=== PATIENT | female | born 1955 | race Caucasian/White ===

== ENCOUNTER → 2016-10-30 | Outpatient (CLI) | payer BC ==
--- NOTE | 2016-11-03 09:35 | MM ---
Reason for exam: screening (asymptomatic). Last mammogram was performed 1 year and 1 month ago. History: Patient is postmenopausal. Family history of breast cancer in aunt at age 50 and breast cancer in mother at age 86. Benign US RT VAD breast biopsy of the right breast, September 12, 2013. Benign excisional biopsy of the left breast, 1981. Physical Findings: A clinical breast exam by your physician is recommended on an annual basis and results should be correlated with mammographic findings. MG Screening Mammo w CAD Bilateral CC and MLO view(s) were taken. Prior study comparison: October 08, 2015, bilateral MG screening mammo w CAD. August 22, 2014, bilateral MG screening mammo w CAD. The breast tissue is almost entirely fat. Previous mammotome biopsy within the right breast. Asymmetric breast tissue in the right breast. No significant changes when compared with prior studies. ASSESSMENT: Benign, BI-RAD 2 RECOMMENDATION: Routine screening mammogram of both breasts in 1 year.
== END ==
LOC: RADMAMWWP 14:55
PROVIDERS: ATTEND Family Medicine
DX: Z12.31 Encounter for screening mammogram for malignant neoplasm of breast (principal)

== ENCOUNTER → 2017-05-07 | Outpatient (CLI) | payer BC ==
--- NOTE | 2017-05-07 16:11 | PN ---
PROGRESS NOTE DATE OF SERVICE: 05/07/2017 62-year-old lady has been followed in [facility] for treatment of obstructive sleep apnea-hypopnea syndrome. The patient successfully continued to use her CPAP equipment every night but recently she has been told by her that she sometimes has snoring while she is using her CPAP unit. About 1-1/2 years ago because patient has difficulties with the usage of the machine I decreased the CPAP pressure from 11 cm of water to 9 cm of water. Also, patient indicated that sometimes when she pushes the button to start the machine, the machine does not start and she has to push the button several times. [place] Sleepiness Scale today is 2. I checked patient's CPAP unit. CPAP pressure is 9 cm of water. She is using it 24/30 nights for more than 4 hours, average 5.1 hours per night. She indicated that she practically did not have any episodes of cardiac arrhythmia for the last year, except last night with some extrasystoles. She lost her weight since previous visit from 232 pounds down to 228 pounds. MEDICATIONS: Include Cozaar, Toprol, Feldene. PHYSICAL EXAM: Patient in no distress. BP 112/69, HR 78, RR 16, height 5 feet and 3, weight 228, BMI 40, temp 98.1, oxygen saturation room air 96%. Oropharynx low position of soft palate. Neck Supple, no JVD. Thyroid is not palpable. LUNGS Clear to percussion and to auscultation. Good air exchange. No wheezing or rhonchi. HEART S1, S2 regular. No murmurs, gallops, or rubs. ABDOMEN : Obese. Soft and nontender. Bowel sounds are present. No organomegaly appreciated. EXTREMITIES No clubbing or cyanosis. MULE DEVELOPER Awake, alert, and oriented X3. Cranial nerves 2 to 7 intact. There is no fasciculation or atrophy. noted. No focal deficits observed. IMPRESSION: 1. Obstructive sleep apnea-hypopnea syndrome. Patient demonstrated good compliance with treatment benefitting from treatment. 2. Patient's CPAP unit sometimes does not start at night. 3. Sometimes with a pressure of 9 cm of water, the patient has episodes of snoring. 4. Hypothyroidism. 5. Irritable bowel syndrome. 6. Status post cholecystectomy. 7. History of episodes of cardiac arrhythmia, extrasystoles, improved with treatment on CPAP. 8. Status post hysterectomy. PLAN: 1. Prescription to check the patient's CPAP unit if necessary to replace with new one. 2. I increased pressure in CPAP unit to 10 cm of water. 3. Losing weight. 4. Sleep hygiene with regular time in bed for at least 8 hours. 5. No driving if feels any sleepiness. Thank you very much for allowing me to participate in management of your patient. Sincerely, Cb Christie MD, PhD, FAASM Diplomat of [employer] Ski Production Supervisor of [facility] [place] MMODL / IJN: [id number] /
== END | disposition home or self-care (01) ==
LOC: SLEEP 14:49
PROVIDERS: ATTEND Internal Medicine
DX: G47.33 Obstructive sleep apnea (adult) (pediatric) (principal); E03.9 Hypothyroidism, unspecified; K58.9 Irritable bowel syndrome, unspecified; Z90.49 Acquired absence of other specified parts of digestive tract; Z86.79 Personal history of other diseases of the circulatory system; Z90.710 Acquired absence of both cervix and uterus; Z79.1 Long term (current) use of non-steroidal anti-inflammatories (NSAID)

== ENCOUNTER → 2018-01-05 | Outpatient (CLI) | payer BC ==
--- NOTE | 2018-01-07 12:05 | MM ---
Reason for exam: screening (asymptomatic). Last mammogram was performed 1 year and 2 months ago. History: Patient is postmenopausal. Family history of breast cancer in aunt at age 50 and breast cancer in mother at age 86. Benign US RT VAD breast biopsy of the right breast, September 12, 2013. Benign excisional biopsy of the left breast, 1981. Physical Findings: A clinical breast exam by your physician is recommended on an annual basis and results should be correlated with mammographic findings. MG 3D Screening Mammo W/Cad Bilateral CC and MLO view(s) were taken. Prior study comparison: October 30, 2016, bilateral MG screening mammo w CAD. October 08, 2015, bilateral MG screening mammo w CAD. The breast tissue is almost entirely fat. Previous mammotome biopsy in the right breast. There is chronic nodularity bilaterally. No significant changes when compared with prior studies. ASSESSMENT: Benign, BI-RAD 2 RECOMMENDATION: Routine screening mammogram of both breasts in 1 year.
== END | disposition home or self-care (01) ==
LOC: RADMAMWWP 07:17
PROVIDERS: ATTEND Nurse Practitioner Family
DX: Z12.31 Encounter for screening mammogram for malignant neoplasm of breast (principal)
CPT/HCPCS: 77063; 77067

== ENCOUNTER → 2018-03-18 | Outpatient (CLI) | payer BC ==
--- NOTE | 2018-03-18 16:55 | PN ---
PROGRESS NOTE DATE OF SERVICE: 03/18/2018 This patient is a 63-year-old lady who has been followed in the sleep center for treatment of obstructive sleep apnea-hypopnea syndrome. The patient successfully continues to use her CPAP equipment every night. Recently she developed some problem related to her machine; sometimes the main knob of the machine does not work. I checked her machine. Usage is 26/30 nights for more than 4 hours, average 5.4 hours. No snoring with the machine. [place] Sleepiness Scale today is only 1. MEDICATIONS: 1. Synthroid. 2. Ativan. 3. Feldene. PHYSICAL EXAMINATION: GENERAL A pleasant patient without distress. VITAL SIGNS: BP 123/76, HR 72, RR 16, height 5 feet 3-1/2 inches, weight 229, BMI 39.9. Temperature 98.2. Oxygen saturation at room air 96%. HEENT: PERRLA, EOMI. Evaluation of oropharynx showed tongue protrudes midline; low position of soft palate. NECK: Supple. No JVD. Thyroid is not palpable. LUNGS: Clear to percussion and to auscultation. Good air exchange. No wheezing or rhonchi. HEART: S1, S2 regular. Mild systolic murmur on aorta. ABDOMEN: Obese. EXTREMITIES : No clubbing or cyanosis. SALES ORDER PROCESSOR: Awake, alert, and oriented X3. Cranial nerves 2 to 7 intact. There is no fasciculation or atrophy. noted. No focal deficits observed. IMPRESSION: 1. Obstructive sleep apnea-hypopnea syndrome. Patient demonstrated great compliance with treatment, benefitting from treatment. 2. Obesity. 3. Hypothyroidism. 4. Palpitation. 5. Osteoarthritis. 6. Status post hysterectomy. 7. Status post lap band surgery. 8. History of irritable bowel syndrome. PLAN: 1. Prescription for all necessary CPAP supplies. 2. Losing weight. 3. Sleep hygiene with regular time in bed for at least 8 hours. 4. Patient will replace her CPAP unit. 5. No driving if feeling any sleepiness. Thank you very much for allowing me to participate in the management of your patient. Sincerely, Cb Christie MD, PhD, FAASM Diplomat of [employer] Letter Of Credit Document Examiner of [facility] [place] MMODL / IJN: [id number] /
== END | disposition home or self-care (01) ==
LOC: SLEEP 14:36
PROVIDERS: ATTEND Internal Medicine
DX: G47.33 Obstructive sleep apnea (adult) (pediatric) (principal); E66.9 Obesity, unspecified; E03.9 Hypothyroidism, unspecified; R00.2 Palpitations; M19.90 Unspecified osteoarthritis, unspecified site; Z90.710 Acquired absence of both cervix and uterus; Z98.84 Bariatric surgery status; Z87.19 Personal history of other diseases of the digestive system; Z79.1 Long term (current) use of non-steroidal anti-inflammatories (NSAID); Z68.39 Body mass index [BMI] 39.0-39.9, adult; Z99.89 Dependence on other enabling machines and devices; Z79.899 Other long term (current) drug therapy

== ENCOUNTER 2018-05-06 11:29 | Day surgery (SDC) | payer BC, MEDICARE ==
[2018-05-04 13:16] VITALS: BMI 38.6
[2018-05-06 12:04] VITALS: RESP 16; TEMP 97.4
[2018-05-06] MEDS ORDERED: LACTATED RINGERS 1,000 ML IV ONE (12:13)
[2018-05-06] MEDS ORDERED: LIDOCAINE 1% 20 ML VIAL (10MG/ML) FOR IV START INTRADERMA ONE (12:13)
[2018-05-06] MEDS ORDERED: PROPOFOL 10 MG/ML 20 ML VIAL IV ONE (12:41)
[2018-05-06] MEDS ORDERED: LIDOCAINE 1% INJ 10MG/ML (20 ML MDV) ONE (12:41)
--- NOTE | 2018-05-06 13:05 | P.PCN ---
Date of Procedure: 05/06/18 Procedure(s) Performed: Brief history: Patient is a pleasant 63-year-old white female, scheduled for an elective upper endoscopy as well as colonoscopy as a part of evaluation of GERD/intermittent dysphagia to solids and chronic diarrhea of several years duration. She has history of lab) 15 years ago that was removed but still continues to have intermittent dysphagia to solids. Procedure performed: Esophagogastroduodenoscopy with biopsy Colonoscopy with biopsy Preoperative diagnosis: GERD/dysphagia Chronic diarrhea and history of colon polyps Anesthesia: MAC Procedure: After informed consent was obtained from the patient was brought into the endoscopy unit and IV sedation was administered by anesthesia under continuous monitoring. Initially upper endoscopy was done. The Olympus GF 160 video endoscope was inserted inserted into the mouth and esophagus intubated without any difficulty and was gradually advanced into the stomach and duodenum and carefully examined. The bulb and second part of the duodenum appeared normal. Biopsies were done from the duodenum to rule out celiac disease. The scope was then withdrawn into the stomach adequately insufflated with air and upon careful examination the antrum and body, cardia and fundus appeared normal. The scope was then withdrawn into the esophagus. The GE junction was located at 36 cm to the incisors. Small to moderate size hiatal hernia with Jhonny erosions noted. The GE junction appeared regular with no erythema erosions or ulcerations. Rest of the esophagus appeared normal. Patient tolerated the procedure well. At this time the patient continued to remain sedation. Initial digital rectal examination was normal. Olympus CF 160 video colonoscope was then inserted into the rectum and gradually advanced to the cecum without any difficulty. Careful examination was performed as the scope was gradually being withdrawn. The prep was fair.. The cecum, ascending colon, transverse colon, descending colon, sigmoid colon and rectum appeared normal. Labs were done from ascending and descending colon to rule out microscopic/collagenous colitis. Retroflexion was performed in the rectum and no lesions were noted. Patient tolerated the procedure well. Impression: 1. Upper endoscopy revealed small to moderate size hiatal hernia with Jhonny erosions but no evidence of esophageal stricture.. 2. Colonoscopy revealed normal examination to evidence of colitis or colorectal neoplasia Recommendations: Findings of this examination were discussed with the patient as well as her family. She was advised to follow with the biopsy results. She'll have a repeat screening colonoscopy in 5 years. Because of the prior history of colon polyps.
[2018-05-06 13:14] VITALS: PULSE 54
[2018-05-06 13:27] VITALS: BP 112/71
== END 2018-05-06 13:44 | disposition home or self-care (01) ==
LOC: ORWHC2ENDO 11:29
PROVIDERS: ATTEND Internal Medicine Gastroenterology
DX: K44.9 Diaphragmatic hernia without obstruction or gangrene (principal); K58.9 Irritable bowel syndrome, unspecified; R13.10 Dysphagia, unspecified; Z86.010 Personal history of colon polyps; I10 Essential (primary) hypertension; E07.9 Disorder of thyroid, unspecified; G47.33 Obstructive sleep apnea (adult) (pediatric); Z79.890 Hormone replacement therapy; Z79.1 Long term (current) use of non-steroidal anti-inflammatories (NSAID); Z79.899 Other long term (current) drug therapy; Z88.5 Allergy status to narcotic agent; Z88.2 Allergy status to sulfonamides; Z88.8 Allergy status to other drugs, medicaments and biological substances
CPT/HCPCS: 88305; 45380; 43239; J2001; J2704; 45378

== ENCOUNTER → 2018-07-01 | Outpatient (CLI) | payer BC ==
--- NOTE | 2018-07-01 11:23 | PN ---
PROGRESS NOTE DATE OF SERVICE: 07/01/2018. A 63-year-old lady who has been followed in the Sleep Center for treatment of obstructive sleep apnea-hypopnea syndrome. Several months ago she received new CPAP unit. Patient continued to use his CPAP equipment every night. She developed significant dryness in the mouth. She talked to the [employer] equipment XDC and the setup of humidification was increased, but patient continued to have her dryness in the mouth, very significant. I checked CPAP unit. CPAP pressure is 11 cm of water. Usage is practically 100% of the night. Average usage for 3 months, 4.7 hours. Leak for the last month, 31 L/minute, for the 3 months, 29 L/minutes. Apnea-hypopnea index for 3 months in the range of 3.1, which is normal range. [place] Sleepiness Scale today is 1. MEDICATIONS: Synthroid, Ativan, Seldane. PHYSICAL EXAM: Patient in no distress. BP 116/75, HR 59, RR 16, weight 229.2, temperature 97.9, oxygen saturation at room air 96%. OROPHARYNX: Low position of soft palate. ABDOMEN: Obese. Neck Supple, no JVD. Thyroid is not palpable. LUNGS Clear to percussion and to auscultation. Good air exchange. No wheezing or rhonchi. HEART S1, S2 regular. No murmurs, gallops, or rubs. EXTREMITIES No clubbing or cyanosis. WINEMAKER Awake, alert, and oriented X3. Cranial nerves 2 to 7 intact. There is no fasciculation or atrophy. noted. No focal deficits observed. IMPRESSION: 1. Severe obstructive sleep apnea-hypopnea syndrome. Patient demonstrated good compliance with treatment, benefitting from treatment. 2. Patient developed dryness in the mouth with a new machine. 3. Obesity. 4. Hypothyroidism. 5. History of osteoarthritis. 6. Status post hysterectomy. 7. Status post lap band surgery. 8. History of irritable bowel syndrome. PLAN: 1. We will check machine including heated humidifier with [employer]. According to patient on the level of humidity at 8, which is maximal, amount of water humidifier slightly goes down after the night of usage. Machine which may indicate that the heater is not working perfectly. 2. Prescription for chin strap to prevent leak, possibly opening mouth and subsequently developing dryness in the mouth, although on the previous machine, patient did not have dry mouth. 3. Losing weight. 4. Sleep hygiene with regular time in bed for at least 8 hours. 5. Precautions related to driving. No driving if feeling sleepiness. Thank you very much for allowing me to participate in management of your patient. Sincerely, Cb Christie MD, PhD, FAASM Diplomat of [employer] of Internal Medicine Flux Mixer of [facility] [place] MMODL / IJN: [id number] /
== END | disposition home or self-care (01) ==
LOC: SLEEP 10:03
PROVIDERS: ATTEND Internal Medicine
DX: G47.33 Obstructive sleep apnea (adult) (pediatric) (principal); E66.9 Obesity, unspecified; E03.9 Hypothyroidism, unspecified; Z87.39 Personal history of other diseases of the musculoskeletal system and connective tissue; Z90.710 Acquired absence of both cervix and uterus; Z79.899 Other long term (current) drug therapy; Z99.89 Dependence on other enabling machines and devices; Z98.84 Bariatric surgery status; Z87.19 Personal history of other diseases of the digestive system

== ENCOUNTER 2018-11-23 08:24 | Day surgery (SDC) | payer BC ==
[2018-11-19 09:39] VITALS: BMI 37.5
[~2018-11-23 08:24] MED LIST: SODIUM CHLORIDE 0.9% 1,000 ML IV SCH
[2018-11-23 08:43] VITALS: TEMP 97.1
[2018-11-23] MEDS ORDERED: LIDOCAINE 1% INJ 10MG/ML (20 ML MDV) SQ ONE (09:59)
--- NOTE | 2018-11-23 10:36 | P.PCN ---
Preoperative Diagnosis: Loop monitor implant Primary physicians: Cindy Canales Diesel Service Apprentice: Dr. Ramos Indication: Palpitations, Sick Sinus Syndrome Patient was brought to the EP lab in a fasting state. Written informed consent was obtained prior to the procedure. The left pectoral area was prepped and draped per protocol. Intravenous antibiotic was administered preoperatively. A subcutaneous Loop monitor was implanted successfully and the wound was closed per protocol. The device was programmed to detect significant alem- arrhythmic and tachy-arrhythmic events, per protocol. Device and programming details: For atrial fibrillation and bradycardia detection Patient underwent EP procedure under conscious sedation/moderate sedation, monitoring of the level of consciousness and physiologic parameters including but not limited to vital signs and oxygenation. Patient tolerated the procedure well without any acute complications. Start time: 0958 Stop time: 1005 Disposition: same day
--- NOTE | 2018-11-23 10:44 | P.PRLE ---
RE: Maryanne Amato Dear Ryann Madden underwent implantation of loop monitor for tachybradycardia syndrome. I will keep you posted on any new developments or detection of any new arrhythmias Thank you for entrusting me with the care of the patient Warm regards Sincerely Rickey See
[2018-11-23 11:45] VITALS: RESP 16
[2018-11-23 11:55] VITALS: BP 105/59; PULSE 56
[2018-11-23] MEDS ORDERED: ceFAZolin IN SWFI 2 GM/20 ML SYRINGE IVP ONE (13:00)
== END 2018-11-23 11:29 | disposition home or self-care (01) ==
LOC: CATHEP 08:24
PROVIDERS: ATTEND Internal Medicine Clinical Cardiac Electrophysiology
DX: R00.2 Palpitations (principal); I49.5 Sick sinus syndrome; I10 Essential (primary) hypertension; G47.33 Obstructive sleep apnea (adult) (pediatric); Z99.89 Dependence on other enabling machines and devices; Z87.891 Personal history of nicotine dependence; Z79.1 Long term (current) use of non-steroidal anti-inflammatories (NSAID); Z79.82 Long term (current) use of aspirin; Z79.890 Hormone replacement therapy; Z79.899 Other long term (current) drug therapy; Z88.5 Allergy status to narcotic agent; Z88.2 Allergy status to sulfonamides; Z88.8 Allergy status to other drugs, medicaments and biological substances
CPT/HCPCS: 33285; C1769; C1764; J2001; J0690

== ENCOUNTER 2018-12-31 01:14 | Inpatient (IN) | payer BC, MEDICARE ==
--- NOTE | 2018-12-31 02:04 | ED ---
Abdominal Pain HPI - General Stated Complaint: Bowel Obstruction Time Seen by Provider: 12/31/18 01:33 Source: patient, family Mode of arrival: wheelchair Limitations: physical limitation - History of Present Illness Initial Comments: This patient is a 63-year-old woman who presents as a transfer from [facility]. She states she had gone there to be evaluated for abdominal pain. The pain started nearly 24 hours ago now. She describes it as being diffuse, aching, somewhat colicky, and moderate intensity. She has not noted worsening or relieving factors. In addition, patient states she has had over 10 watery bowel movements though this seems to have slowed for the past few hours. Patient went to the other hospital where she had labs and computed tomography scan performed and was told that she had probably developed a small bowel obstruction. She chose to come here by private vehicle with her . Patient states that she was given some IV analgesia and it did relieve the pain somewhat. Patient's past surgical history notable for remote surgery for ovarian cyst. She also has had cholecystectomy. She had one previous bowel obstruction but states that this feels different. The previous episode had resolved after NG tube placement. MD Complaint: abdominal pain Onset/Timin -: days(s) Location: diffuse Radiation: none Severity: moderate Quality: aching Consistency: constant Improves With: nothing Worsens With: nothing Associated Symptoms: diarrhea - Related Data Home Medications Medication Instructions Recorded Confirmed Levothyroxine Sodium [Synthroid] 125 mcg PO DAILY 05/04/18 12/31/18 Piroxicam 20 mg PO DAILY 05/04/18 12/31/18 Ergocalciferol [Vitamin D2] 50,000 unit PO TU 11/19/18 12/31/18 Losartan [Cozaar] 50 mg PO DAILY 11/19/18 12/31/18 Allergies Allergy/AdvReac Type Severity Reaction Status Date / Time Sulfa (Sulfonamide Allergy Rash/Hives Verified 12/31/18 01:36 Antibiotics) meperidine [From Demerol] AdvReac BP drops Verified 12/31/18 01:36 methylprednisolone AdvReac Rash/Hives Verified 12/31/18 01:36 [From Depo-Medrol] Review of Systems ROS Statement: Those systems with pertinent positive or pertinent negative responses have been documented in the HPI. ROS Other: All systems not noted in ROS Statement are negative. Constitutional: Denies: fever, chills Respiratory: Denies: cough, dyspnea Cardiovascular: Denies: chest pain, palpitations, orthopnea, edema Gastrointestinal: Reports: abdominal pain, diarrhea. Denies: nausea, vomiting, melena, hematochezia Genitourinary: Denies: dysuria, hematuria Musculoskeletal: Denies: back pain Skin: Denies: rash Neurological: Denies: headache, weakness, numbness Past Medical History Past Medical History: Osteoarthritis (OA), Sleep Apnea/CPAP/BIPAP, Thyroid Disorder Additional Past Medical History / Comment(s): See Dr See H&P, IBS, SMALL BOWEL OBSTRUCTION History of Any Multi-Drug Resistant Organisms: None Reported Past Surgical History: Cholecystectomy, Hysterectomy Additional Past Surgical History / Comment(s): Colonoscopy, Cataracts; Lap band and removal Past Anesthesia/Blood Transfusion Reactions: No Reported Reaction Past Psychological History: No Psychological Hx Reported Smoking Status: Former smoker Past Alcohol Use History: None Reported Past Drug Use History: None Reported - Past Family History Father Family Medical History: Pulmonary Embolus Mother Family Medical History: Cancer Additional Family Medical History / Comment(s): Breast CA Daughter(s) Family Medical History: Cancer Additional Family Medical History / Comment(s): Tongue CA General Exam Limitations: physical limitation General appearance: alert, in no apparent distress Head exam: Present: atraumatic, normocephalic Eye exam: Present: normal appearance. Absent: scleral icterus, conjunctival injection ENT exam: Present: normal oropharynx Neck exam: Present: normal inspection Respiratory exam: Present: normal lung sounds bilaterally. Absent: respiratory distress, wheezes, rales, rhonchi, stridor Cardiovascular Exam: Present: regular rate, normal rhythm, normal heart sounds. Absent: systolic murmur, diastolic murmur, rubs, gallop GI/Abdominal exam: Present: soft, tenderness (Mild periumbilical tenderness), hypoactive bowel sounds. Absent: distended, guarding, rebound, rigid, mass, pulsatile mass, hernia Extremities exam: Present: normal inspection, normal capillary refill. Absent: pedal edema, calf tenderness Back exam: Present: normal inspection. Absent: CVA tenderness (R), CVA tenderness (L) Neurological exam: Present: alert Skin exam: Present: warm, dry, intact, normal color. Absent: rash Course Vital Signs 06/14/19 01:31 Temperature 97.8 F Pulse Rate 61 Respiratory 18 Rate Blood Pressure 110/75 O2 Sat by Pulse 96 Oximetry Medical Decision Making - Lab Data Result diagrams: 12/31/18 02:16 12/31/18 02:16 Lab Results 12/31/18 12/31/18 Range/Units 02:16 02:16 WBC 6.7 (3.8-10.6) k/uL RBC 4.93 (3.80-5.40) m/uL Hgb 13.3 (11.4-16.0) gm/dL Hct 41.1 (34.0-46.0) % MCV 83.2 (80.0-100.0) fL MCH 27.0 (25.0-35.0) pg MCHC 32.4 (31.0-37.0) g/dL RDW 15.9 H (11.5-15.5) % Plt Count 234 (150-450) k/uL Neutrophils % (Manual) 59 % Band Neutrophils % 16 % Lymphocytes % (Manual) 19 % Monocytes % (Manual) 4 % Eosinophils % (Manual) 4 % Neutrophils # (Manual) 5.00 (1.3-7.7) k/uL Lymphocytes # (Manual) 1.27 (1.0-4.8) k/uL Monocytes # (Manual) 0.27 (0-1.0) k/uL Eosinophils # (Manual) 0.27 (0-0.7) k/uL Nucleated RBCs 0 (0-0) /100 WBC Manual Slide Review Performed Large Platelets Present Polychromasia Present Anisocytosis (manual) Present Sodium 137 (137-145) mmol/L Potassium 4.4 (3.5-5.1) mmol/L Chloride 110 H (98-107) mmol/L Carbon Dioxide 21 L (22-30) mmol/L Anion Gap 6 mmol/L BUN 13 (7-17) mg/dL Creatinine 0.55 (0.52-1.04) mg/dL Est GFR (CKD-EPI)AfAm >90 (>60 ml/min/1.73 sqM) Est GFR (CKD-EPI)NonAf >90 (>60 ml/min/1.73 sqM) Glucose 117 H (74-99) mg/dL Calcium 8.5 (8.4-10.2) mg/dL Total Bilirubin 0.7 (0.2-1.3) mg/dL AST 37 H (14-36) U/L ALT 38 (9-52) U/L Alkaline Phosphatase 105 (38-126) U/L Total Protein 6.3 (6.3-8.2) g/dL Albumin 3.5 (3.5-5.0) g/dL Amylase <30 L (30-110) U/L Lipase 29 (23-300) U/L Disposition Clinical Impression: Small bowel obstruction Disposition: ADMITTED IP TO THIS [facility] Condition: Fair Referrals: Jeevan Martinez MD [Primary Care Provider] - 1-2 days
[2018-12-31 03:19] LABS: HCT 41.1 % (34.0-46.0); HGB 13.3 gm/dL (11.4-16.0); MCHC 32.4 g/dL (31.0-37.0); MCV 83.2 fL (80.0-100.0); Mean Platelet Volume 7.4; Platelet Count 234 k/uL (150-450); RBC 4.93 m/uL (3.80-5.40); RDW 15.9 % (11.5-15.5); WBC 6.7 k/uL (3.8-10.6)
[2018-12-31 03:23] LABS: ALT 38 U/L (9-52); AST 37 U/L (14-36); African American GFR (CKD) >90 (>60 ml/min/1.73 sqM); Albumin 3.5 g/dL (3.5-5.0); Alkaline Phosphatase 105 U/L (38-126); Amylase <30 U/L (30-110); Anion Gap 6 mmol/L; Blood Urea Nitrogen 13 mg/dL (7-17); Calcium 8.5 mg/dL (8.4-10.2); Carbon Dioxide 21 mmol/L (22-30); Chloride 110 mmol/L (98-107); Glucose 117 mg/dL (74-99); Lipase 29 U/L (23-300); Potassium 4.4 mmol/L (3.5-5.1); Sodium 137 mmol/L (137-145); Total Bilirubin 0.7 mg/dL (0.2-1.3); Total Protein 6.3 g/dL (6.3-8.2)
[2018-12-31 03:53] LABS: Band Neutrophils % 16 %; Eosinophils # (M) 0.27 k/uL (0-0.7); Lymphocytes # (M) 1.27 k/uL (1.0-4.8); Monocytes # (M) 0.27 k/uL (0-1.0); Neutrophils % (M) 59 %; Nucleated Red Blood Cells 0 /100 WBC (0-0); Total Cells Counted 200
[2018-12-31 03:55] LABS: Large Platelets Present
[2018-12-31 03:56] LABS: Anisocytosis (M) Present; Polychromasia Present
[2018-12-31] MEDS ORDERED: ONDANSETRON 4 MG/2 ML VIAL IVP PRN (04:12)
[2018-12-31] MEDS ORDERED: NALOXONE 0.4 MG/ML 1 ML VIAL IV PRN (04:12)
[2018-12-31] MEDS ORDERED: ACETAMINOPHEN TAB 325 MG TAB PO PRN (04:12)
[2018-12-31] MEDS ORDERED: MORPHINE SULFATE 4 MG/ML SYRINGE IV PRN (04:12)
[2018-12-31] MEDS: SODIUM CHLORIDE 0.9% 1,000 ML IV SCH ×3 (04:40→20:12)
[2018-12-31 09:45] VITALS: BMI 39.3
[2018-12-31] MEDS: LOSARTAN 50 MG TAB PO SCH (13:30)
[2018-12-31] MEDS: LEVOTHYROXINE 125 MCG TAB PO SCH (13:31)
[2018-12-31] MEDS: FAMOTIDINE 20 MG TAB PO SCH ×2 (13:31→20:12)
--- NOTE | 2018-12-31 16:14 | P.GSHP ---
History of Present Illness H&P Date: 12/31/18 Chief Complaint: Abdominal pain Patient admitted from [facility]. Once the evening she started having episodes of uncontrolled diarrhea. She believes she went approximately 20 times in 12 hours. Some of these episodes were incontinence. No blood. She was nauseated with a diminished appetite. Yesterday despite her symptoms the night before she tried to go up to [place] for a vacation but was having right- sided abdominal discomfort and mild nausea. She went home from there and went to [place] emergency department. CAT scan was performed. CAT scan shows some dilated mid small bowel loops. Mild thickening of the wall noted. Patient states she does feel better today. Pain is much improved. No sick contacts. Initially thought this may be food poisoning but she admits she shared much of her food the other day. She is afebrile. Blood cell count normal however bandemia noted on today's CBC. States she had a small bowel obstruction in the past. She would like to try some liquids at this time. History of appendectomy, colon, previous lap band and removal. - Review of Systems Comment: The patient denies any acute changes in vision or hearing, no dysphagia or odynophagia, no chest pain or shortness of breath, no dysuria or hematuria, no headache, no runny nose, no rectal bleeding or melena, no unexplained weight loss Past Medical History Past Medical History: Osteoarthritis (OA), Sleep Apnea/CPAP/BIPAP, Thyroid Disorder Additional Past Medical History / Comment(s): See Dr See H&P, IBS, SMALL BOWEL OBSTRUCTION History of Any Multi-Drug Resistant Organisms: None Reported Past Surgical History: Cholecystectomy, Hysterectomy Additional Past Surgical History / Comment(s): Colonoscopy, Cataracts; Lap band and removal Past Anesthesia/Blood Transfusion Reactions: No Reported Reaction Past Psychological History: No Psychological Hx Reported Smoking Status: Former smoker Past Alcohol Use History: None Reported Additional Past Alcohol Use History / Comment(s): smoked from 20-30's 1/2 ppd Past Drug Use History: None Reported - Past Family History Father Family Medical History: Pulmonary Embolus Mother Family Medical History: Cancer Additional Family Medical History / Comment(s): Breast CA Daughter(s) Family Medical History: Cancer Additional Family Medical History / Comment(s): tongue ca Medications and Allergies Home Medications Medication Instructions Recorded Confirmed Type Levothyroxine Sodium [Synthroid] 125 mcg PO DAILY 05/04/18 12/31/18 History Ergocalciferol [Vitamin D2] 50,000 unit PO TU 11/19/18 12/31/18 History Losartan [Cozaar] 25 mg PO DAILY 12/31/18 12/31/18 History Piroxicam [Feldene] 20 mg PO DAILY 12/31/18 12/31/18 History Allergies Allergy/AdvReac Type Severity Reaction Status Date / Time Sulfa (Sulfonamide Allergy Rash/Hives Verified 12/31/18 07:48 Antibiotics) meperidine [From Demerol] AdvReac BP drops Verified 12/31/18 07:48 methylprednisolone AdvReac Rash/Hives Verified 12/31/18 07:48 [From Depo-Medrol] Surgical - Exam Vital Signs Temp Pulse Resp BP Pulse Ox 97.8 F 61 18 110/75 96 12/31/18 01:31 12/31/18 01:31 12/31/18 01:31 12/31/18 01:31 12/31/18 01:31 Physical exam: General: Well-developed, well-nourished HEENT: Normocephalic, sclerae nonicteric Abdomen: Mild right mid abdominal tenderness, nondistended Extremities: No edema Neuro: Alert and oriented Results - Labs 12/31/18 02:16 12/31/18 02:16 Abnormal Lab Results - Last 24 Hours (Table) 12/31/18 12/31/18 Range/Units 02:16 02:16 RDW 15.9 H (11.5-15.5) % Chloride 110 H (98-107) mmol/L Carbon Dioxide 21 L (22-30) mmol/L Glucose 117 H (74-99) mg/dL AST 37 H (14-36) U/L Amylase <30 L (30-110) U/L Diabetes panel 12/31/18 Range/Units 02:16 Sodium 137 (137-145) mmol/L Potassium 4.4 (3.5-5.1) mmol/L Chloride 110 H (98-107) mmol/L Carbon Dioxide 21 L (22-30) mmol/L BUN 13 (7-17) mg/dL Creatinine 0.55 (0.52-1.04) mg/dL Glucose 117 H (74-99) mg/dL Calcium 8.5 (8.4-10.2) mg/dL AST 37 H (14-36) U/L ALT 38 (9-52) U/L Alkaline Phosphatase 105 (38-126) U/L Total Protein 6.3 (6.3-8.2) g/dL Albumin 3.5 (3.5-5.0) g/dL Calcium panel 12/31/18 Range/Units 02:16 Calcium 8.5 (8.4-10.2) mg/dL Albumin 3.5 (3.5-5.0) g/dL Pituitary panel 12/31/18 Range/Units 02:16 Sodium 137 (137-145) mmol/L Potassium 4.4 (3.5-5.1) mmol/L Chloride 110 H (98-107) mmol/L Carbon Dioxide 21 L (22-30) mmol/L BUN 13 (7-17) mg/dL Creatinine 0.55 (0.52-1.04) mg/dL Glucose 117 H (74-99) mg/dL Calcium 8.5 (8.4-10.2) mg/dL Adrenal panel 12/31/18 Range/Units 02:16 Sodium 137 (137-145) mmol/L Potassium 4.4 (3.5-5.1) mmol/L Chloride 110 H (98-107) mmol/L Carbon Dioxide 21 L (22-30) mmol/L BUN 13 (7-17) mg/dL Creatinine 0.55 (0.52-1.04) mg/dL Glucose 117 H (74-99) mg/dL Calcium 8.5 (8.4-10.2) mg/dL Total Bilirubin 0.7 (0.2-1.3) mg/dL AST 37 H (14-36) U/L ALT 38 (9-52) U/L Alkaline Phosphatase 105 (38-126) U/L Total Protein 6.3 (6.3-8.2) g/dL Albumin 3.5 (3.5-5.0) g/dL Assessment and Plan (1) Enteritis Narrative/Plan: Patient a longer having diarrhea. If diarrhea recurs will check stool sample. Begin clear liquid diet. Repeat labs tomorrow. Etiology of the patient's symptoms unclear but CAT scan shows slight small bowel distention with thickening. Favor enteritis likely infectious. Small bowel obstruction less likely given the impressive diarrhea. Current Visit: Yes Status: Acute Code(s): K52.9 - NONINFECTIVE GASTROENTERITIS AND COLITIS, UNSPECIFIED SNOMED Code(s): 32722789
[2018-12-31 17:27] LABS: Appearance,Urine Clear (Clear); Bilirubin,Urine Negative (Negative); Blood,Urine Trace (Negative); Color,Urine Yellow; Glucose,Urine (UA) Negative (Negative); Ketones,Urine 2+ (Negative); Leukocyte Esterase,Urine Trace (Negative); Mucus,Urine Few /hpf; Nitrite,Urine Negative (Negative); PH, Urine 5.5 (5.0-8.0); Protein,Urine Negative (Negative); RBC,Urine 4 /hpf (0-5); Specific Gravity,Urine 1.022 (1.001-1.035); Squamous Epithelial Cell,Urine 2 /hpf (0-4); Urobilinogen,Urine <2.0 mg/dL (<2.0); WBC,Urine 4 /hpf (0-5)
--- NOTE | 2018-12-31 18:58 | P.CONS ---
History of Present Illness - Reason for Consult Consult date: 12/31/18 Medical management of hypertension and hypothyroidism - Chief Complaint Abdominal pain and distention - History of Present Illness Patient is a 63-year-old female admitted from [facility]. Once the evening she started having episodes of uncontrolled diarrhea. She believes she went approximately 20 times in 12 hours. Some of these episodes were incontinence. No blood. She was nauseated with a diminished appetite. Yesterday despite her symptoms the night before she tried to go up to [place] for a vacation but was having right-sided abdominal discomfort and mild nausea. She went home from there and went to [place] emergency department. CAT scan was performed. CAT scan shows some dilated mid small bowel loops. Mild thickening of the wall noted. Patient states she does feel better today. Pain is much improved. No sick contacts. Initially thought this may be food p oisoning but she admits she shared much of her food the other day. She is afebrile. Blood cell count normal however bandemia noted on today's CBC. States she had a small bowel obstruction in the past. She would like to try some liquids at this time. History of appendectomy, colon, previous lap band and removal. Review of Systems Constitutional: Denies chills, Denies fever Eyes: denies blurred vision Ears, nose, mouth and throat: Denies epistaxis Cardiovascular: Denies chest pain Respiratory: Denies cough with sputum Gastrointestinal: Reports abdominal pain, Reports diarrhea, Reports nausea, Reports vomiting Past Medical History Past Medical History: Osteoarthritis (OA), Sleep Apnea/CPAP/BIPAP, Thyroid Disorder Additional Past Medical History / Comment(s): See Dr See H&P, IBS, SMALL BOWEL OBSTRUCTION History of Any Multi-Drug Resistant Organisms: None Reported Past Surgical History: Cholecystectomy, Hysterectomy Additional Past Surgical History / Comment(s): Colonoscopy, Cataracts; Lap band and removal Past Anesthesia/Blood Transfusion Reactions: No Reported Reaction Past Psychological History: No Psychological Hx Reported Smoking Status: Former smoker Past Alcohol Use History: None Reported Additional Past Alcohol Use History / Comment(s): smoked from 20-30's 1/2 ppd Past Drug Use History: None Reported - Past Family History Father Family Medical History: Pulmonary Embolus Mother Family Medical History: Cancer Additional Family Medical History / Comment(s): Breast CA Daughter(s) Family Medical History: Cancer Additional Family Medical History / Comment(s): tongue ca Medications and Allergies Home Medications Medication Instructions Recorded Confirmed Type Levothyroxine Sodium [Synthroid] 125 mcg PO DAILY 05/04/18 12/31/18 History Ergocalciferol [Vitamin D2] 50,000 unit PO TU 11/19/18 12/31/18 History Losartan [Cozaar] 25 mg PO DAILY 12/31/18 12/31/18 History Piroxicam [Feldene] 20 mg PO DAILY 12/31/18 12/31/18 History Allergies Allergy/AdvReac Type Severity Reaction Status Date / Time Sulfa (Sulfonamide Allergy Rash/Hives Verified 12/31/18 07:48 Antibiotics) meperidine [From Demerol] AdvReac BP drops Verified 12/31/18 07:48 methylprednisolone AdvReac Rash/Hives Verified 12/31/18 07:48 [From Depo-Medrol] Physical Exam Vitals: Vital Signs Temp Pulse Pulse Resp BP BP Pulse Ox 12/31/18 07:00 98.7 F 50 L 16 103/79 96 12/31/18 04:41 60 100/57 12/31/18 04:31 97.6 F 54 L 16 90/68 97 12/31/18 01:50 16 129/85 94 L 12/31/18 01:31 97.8 F 61 18 110/75 96 Intake and Output 12/30/18 12/31/18 12/31/18 22:59 06:59 14:59 Other: Weight 103.873 kg PHYSICAL EXAMINATION: GENERAL: The patient is alert and oriented x3, not in any acute distress. Well developed, well nourished. HEENT: Pupils are round and equally reacting to light. EOMI. No scleral icterus. No conjunctival pallor. Normocephalic, atraumatic. No pharyngeal erythema. No thyromegaly. CARDIOVASCULAR: S1 and S2 present. No murmurs, rubs, or gallops. PULMONARY: Chest is clear to auscultation, no wheezing or crackles. ABDOMEN: Soft, nontender, nondistended, normoactive bowel sounds. No palpable organomegaly. MUSCULOSKELETAL: No joint swelling or deformity. EXTREMITIES: No cyanosis, clubbing, or pedal edema. NEUROLOGICAL: Gross neurological examination did not reveal any focal deficits. SKIN: No rashes. Results CBC & Chem 7: 12/31/18 02:16 12/31/18 02:16 Labs: Abnormal Lab Results - Last 24 Hours (Table) 12/31/18 12/31/18 Range/Units 02:16 02:16 RDW 15.9 H (11.5-15.5) % Chloride 110 H (98-107) mmol/L Carbon Dioxide 21 L (22-30) mmol/L Glucose 117 H (74-99) mg/dL AST 37 H (14-36) U/L Amylase <30 L (30-110) U/L Assessment and Plan Assessment: 1. Intractable diarrhea with possible ileus; resolved - Possibly acute gastroenteritis; patient denies any further episodes of diarrhea last one being in the ED - Patient has been hydrated with normal saline; electrolytes are monitored closely -Continue with IV Zosyn 3.375 g every 8 hours; IV fluid hydration with normal saline at rate of 1 25 mL an hour 2. Hypertension; reorder Cozaar 50 mg daily 3. Hypothyroidism; clinically euthyroid on home dose of Synthroid 125 MCG daily 4. DVT prophylaxis; SCDs CODE STATUS; full code Time with Patient: Greater than 30
[2018-12-31] MEDS: PIPERACILLIN-TAZOBACTAM 3.375 GM in SODIUM CHLORIDE 0.9% 100 ML IVPB SCH (18:59)
[2019-01-01] MEDS: PIPERACILLIN-TAZOBACTAM 3.375 GM in SODIUM CHLORIDE 0.9% 100 ML IVPB SCH ×2 (00:42→07:22)
[2019-01-01] MEDS: SODIUM CHLORIDE 0.9% 1,000 ML IV SCH ×2 (03:44→11:38)
[2019-01-01] MEDS: LEVOTHYROXINE 125 MCG TAB PO SCH (05:50)
[2019-01-01] MEDS: FAMOTIDINE 20 MG TAB PO SCH (07:22)
[2019-01-01] MEDS: LOSARTAN 50 MG TAB PO SCH (07:22)
[2019-01-01 08:06] VITALS: BP 113/76; PULSE 49; RESP 16; TEMP 98.5
[2019-01-01 08:18] LABS: HCT 38.2 % (34.0-46.0); HGB 12.6 gm/dL (11.4-16.0); MCH 27.7 pg (25.0-35.0); MCHC 32.9 g/dL (31.0-37.0); MCV 84.2 fL (80.0-100.0); Mean Platelet Volume 7.4; Platelet Count 226 k/uL (150-450); RBC 4.53 m/uL (3.80-5.40); RDW 15.1 % (11.5-15.5); WBC 4.4 k/uL (3.8-10.6)
[2019-01-01 08:36] LABS: African American GFR (CKD) >90 (>60 ml/min/1.73 sqM); Anion Gap 6 mmol/L; Blood Urea Nitrogen 8 mg/dL (7-17); Calcium 8.5 mg/dL (8.4-10.2); Carbon Dioxide 23 mmol/L (22-30); Chloride 113 mmol/L (98-107); Glucose 103 mg/dL (74-99); Potassium 4.2 mmol/L (3.5-5.1); Sodium 142 mmol/L (137-145)
--- NOTE | 2019-01-01 10:12 | P.PN ---
Subjective Progress Note Date: 01/01/19 Principal diagnosis: Enteritis Patient doing better today. She says her pain is mostly gone. She is tolerating liquids. She is anxious for more to eat and would like to try to go home today. White blood cell count remains normal. Objective - Vital Signs Vital signs: Vital Signs Temp 98.5 F 01/01/19 07:00 Pulse 49 L 01/01/19 07:00 Resp 16 01/01/19 07:00 BP 113/76 01/01/19 07:00 Pulse Ox 97 01/01/19 01:11 Intake & Output 12/31/18 01/01/19 01/01/19 18:59 06:59 18:59 Intake Total 1490 Output Total 375 Balance 1115 Intake: Intake, IV Titration 1250 Amount Sodium Chloride 0.9% 1, 1250 000 ml @ 125 mls/hr IV . Q8H DEVI Rx#:[id number] Oral 240 Output: Urine 375 Other: # Voids 0 3 - Exam Abdomen: Soft, nondistended, mild tenderness right side of umbilicus - Labs CBC & Chem 7: 01/01/19 07:27 01/01/19 07:27 Labs: Abnormal Lab Results - Last 24 Hours (Table) 12/31/18 01/01/19 Range/Units 17:16 07:27 Chloride 113 H (98-107) mmol/L Glucose 103 H (74-99) mg/dL Urine Ketones 2+ H (Negative) Urine Blood Trace H (Negative) Ur Leukocyte Esterase Trace H (Negative) Urine Mucus Few H (None) /hpf Assessment and Plan (1) Enteritis Narrative/Plan: Patient doing better at this time. No nausea or vomiting. Tolerating diet. Pain improved. X-rays not performed as they were not ordered. Clinically the patient is doing well enough that we will hold off on obtaining x-rays at this time. Will advance diet to soft foods. If tolerates likely discharge later today. Current Visit: Yes Status: Acute Code(s): K52.9 - NONINFECTIVE GASTROENTERITIS AND COLITIS, UNSPECIFIED SNOMED Code(s): 69783537
[2019-01-01 10:30] LABS: Basophils # (M) 0.04 k/uL (0-0.2); Eosinophils # (M) 0.13 k/uL (0-0.7); Lymphocytes # (M) 1.41 k/uL (1.0-4.8); Monocytes # (M) 0.26 k/uL (0-1.0); Neutrophils # (M) 2.55 k/uL (1.3-7.7); Neutrophils % (M) 58 %; Nucleated Red Blood Cells 0 /100 WBC (0-0); Total Cells Counted 100
== END 2019-01-01 15:01 | disposition home or self-care (01) | DRG 392 ==
LOC: EC 01:14 → 4SSUR 04:13
PROVIDERS: ADMIT Surgery; ATTEND Surgery
DX: A09 Infectious gastroenteritis and colitis, unspecified (principal); D72.825 Bandemia; E03.9 Hypothyroidism, unspecified; G47.33 Obstructive sleep apnea (adult) (pediatric); Z99.89 Dependence on other enabling machines and devices; I10 Essential (primary) hypertension; R32 Unspecified urinary incontinence; Z79.890 Hormone replacement therapy; Z79.899 Other long term (current) drug therapy; Z80.3 Family history of malignant neoplasm of breast; Z80.8 Family history of malignant neoplasm of other organs or systems; Z87.891 Personal history of nicotine dependence; Z90.49 Acquired absence of other specified parts of digestive tract; Z90.710 Acquired absence of both cervix and uterus; Z88.5 Allergy status to narcotic agent; Z88.2 Allergy status to sulfonamides; Z88.8 Allergy status to other drugs, medicaments and biological substances; R15.9 Full incontinence of feces; Z98.49 Cataract extraction status, unspecified eye; M19.90 Unspecified osteoarthritis, unspecified site
CPT/HCPCS: 36415; 80048; 80053; 81001; 82150; 83690; 85025; 87324; 99284

== ENCOUNTER 2021-01-03 06:57 | Day surgery (SDC) | payer BC, MEDICARE ==
[2020-12-20 11:51] VITALS: BMI 37.8
[~2021-01-03 06:57] MED LIST changes: +LACTATED RINGERS 1,000 ML IV SCH; +ceFAZolin 1 GM in SODIUM CHLORIDE 0.9% 250 ML IRRIGATION PRN
[2021-01-03 07:34] VITALS: RESP 16; TEMP 97.8
[2021-01-03 08:15] LABS: African American GFR (CKD) >90 (>60 ml/min/1.73 sqM); Anion Gap 6 mmol/L; Blood Urea Nitrogen 17 mg/dL (7-17); Calcium 9.6 mg/dL (8.4-10.2); Carbon Dioxide 28 mmol/L (22-30); Chloride 107 mmol/L (98-107); Glucose 105 mg/dL (74-99); Non-African American GFR(CKD) >90 (>60 ml/min/1.73 sqM); Potassium 4.5 mmol/L (3.5-5.1); Sodium 141 mmol/L (137-145)
[2021-01-03 08:54] LABS: HCT 42.7 % (34.0-46.0); HGB 13.9 gm/dL (11.4-16.0); MCH 27.6 pg (25.0-35.0); MCHC 32.7 g/dL (31.0-37.0); MCV 84.4 fL (80.0-100.0); Mean Platelet Volume 7.3; Platelet Count 245 k/uL (150-450); RBC 5.06 m/uL (3.80-5.40); RDW 13.2 % (11.5-15.5); WBC 7.5 k/uL (3.8-10.6)
[2021-01-03 10:07] LABS: Lymphocytes # (M) 1.43 k/uL (1.0-4.8); Monocytes # (M) 0.98 k/uL (0-1.0); Neutrophils % (M) 64 %; Nucleated Red Blood Cells 0 /100 WBC (0-0); Total Cells Counted 100
[2021-01-03] MEDS ORDERED: MIDAZOLAM 2 MG/2 ML VIAL ONE (10:29)
[2021-01-03] MEDS ORDERED: diphenhydrAMINE 50 MG/ML 1 ML VIAL ONE (10:29)
[2021-01-03] MEDS ORDERED: fentaNYL (PF) 50 MCG/ML 2 ML AMP ONE (10:29)
[2021-01-03] MEDS ORDERED: PROPOFOL 10 MG/ML 20 ML VIAL IV ONE (10:29)
[2021-01-03] MEDS: ceFAZolin 1,000 MG in SODIUM CHLORIDE 0.9% IRRIGATIO 250 ML IRRIGATION ONE ×2 (10:52→11:17)
[2021-01-03] MEDS ORDERED: IOPAMIDOL-300 50ML BTL INJ ONE (10:52)
[2021-01-03] MEDS ORDERED: LIDOCAINE 1% INJ 10MG/ML (20 ML MDV) ONE (11:08)
[2021-01-03] MEDS ORDERED: LIDOCAINE 1% INJ 10MG/ML (20 ML MDV) SQ ONE (11:27)
[2021-01-03] MEDS ORDERED: ACETAMINOPHEN TAB 325 MG TAB PO PRN (12:43)
[2021-01-03] MEDS ORDERED: HYDROcodone/APAP 5-325MG 1 EACH TAB PO PRN (12:43)
--- NOTE | 2021-01-03 13:41 | P.EPPROC ---
- EP Procedure Note Electrophysiology Procedure Note: Left upper extremity venogram. 10 mL IV dye injected on the left arm Patent left cephalic, left axillary and subclavian venous system Plan Proceed with dual-chamber pacemaker implant
--- NOTE | 2021-01-03 13:43 | P.PRLE ---
RE: Maryanne Amato Dear Cindy Maryanne underwent dual-chamber pacemaker implantation for symptomatic sick sinus syndrome She tolerated the procedure well without any acute complications Thank you for entrusting me with the care of the patient Warm regards Sincerely Rickey See
[2021-01-03] MEDS ORDERED: ACETAMINOPHEN IV (For NPO) 1,000 MG in EMPTY BAG 1 BAG IVPB ONE (14:00)
--- NOTE | 2021-01-03 14:33 | XR ---
EXAMINATION TYPE: XR chest 1V portable DATE OF EXAM: 01/03/2021 COMPARISON: NONE HISTORY: Lead placement check TECHNIQUE: Single frontal view of the chest is obtained. FINDINGS: The lungs are grossly clear. Left sided pacer obscures portion of the left hemithorax. Cardiac silhouette is not enlarged. IMPRESSION: No acute process.
--- NOTE | 2021-01-03 15:23 | CE ---
CARDIAC ELECTROPHYSIOLOGY REPORT This is a 65-year-old female with sick sinus syndrome and sinus pauses greater than 3 seconds, caused symptomatic. The patient is brought in for a dual-chamber pacemaker implantation. The patient brought to the EP lab in a fasting state. Written informed consent was obtained prior to the procedure. The left shoulder area was prepped and draped as per protocol. 1% lidocaine was used for local anesthesia. A 4 cm incision was made parallel to the deltopectoral groove, about 1.5 cm medial to it. The incision was carried down to the level of the pectoralis muscle. A subfascial pocket was made. Hemostasis was assured. The left axillary vein was accessed at 2 separate points under fluoroscopy and via appropriately-sized introducer sheaths, 2 leads were positioned the right heart. The atrial lead was a Medtronic model #5076, 45 cm length and serial number [id number]. This was screwed in the right atrial appendage. The P waves were 4.6 mV, pacing impedance 1317 ohms, pacing threshold 0.75 V at 0.4 milliseconds, 10 V test negative. The RV lead was a 58 cm, Medtronic model #5076, serial number [id number]. This was screwed in the high RV septum. R-waves 8.8 mV, pacing impedance 798 ohms, pacing threshold 0.5 V at 0.4 milliseconds, 10 V test negative. The leads were secured to the underlying pectoralis fascia using 2 nonabsorbable sutures. Pocket was irrigated with antibiotic solution. Leads were connected to the generator (dual-chamber pacemaker model number W3DR01, serial number [id number] [facility] MRI. The wound was closed in 3 layers and dressed per protocol. RESULTS: Successful dual-chamber pacemaker implantation for symptomatic sick sinus syndrome with sinus pauses greater than 3 seconds without any triggering factors. MMODL / IJN: [id number] /
[2021-01-03 15:45] VITALS: PULSE 68
[2021-01-03 15:46] VITALS: BP 141/75
[2021-01-03] MEDS ORDERED: LEVOTHYROXINE 125 MCG TAB PO SCH (21:00)
[2021-01-03] MEDS ORDERED: LOSARTAN 25 MG TAB PO SCH (21:00)
== END 2021-01-03 17:00 | disposition home or self-care (01) ==
LOC: CATHEP 06:57
PROVIDERS: ATTEND Internal Medicine Clinical Cardiac Electrophysiology
DX: I49.5 Sick sinus syndrome (principal); I10 Essential (primary) hypertension; I08.3 Combined rheumatic disorders of mitral, aortic and tricuspid valves; I65.23 Occlusion and stenosis of bilateral carotid arteries; Z87.891 Personal history of nicotine dependence; G47.33 Obstructive sleep apnea (adult) (pediatric); E07.9 Disorder of thyroid, unspecified; Z88.5 Allergy status to narcotic agent; Z88.2 Allergy status to sulfonamides; Z79.899 Other long term (current) drug therapy
CPT/HCPCS: 33208; 80048; 85025; 87635; 71045; C1769 ×3; C1892; C1898; C1785; J2250; J1200; J0690 ×2; J2001; J3010; J0131; J2704; Q9967

== ENCOUNTER → 2021-02-07 | Outpatient (CLI) | payer BC ==
--- NOTE | 2021-02-07 23:42 | SFUN ---
SLEEP CENTER FOLLOW UP NOTE DATE OF SERVICE: 02/07/2021 66-year-old lady has been followed in the Sleep Center for treatment of obstructive sleep apnea-hypopnea syndrome. Patient continued to use her CPAP equipment every night for the whole night. No snoring with the machine. [place] Sleepiness Scale today is only 2. CPAP pressure is 11 cm of water. The patient is using an extra-small fullface mask. CPAP unit is ResMed machine. MEDICATIONS: Seldene 20 mg once a day, Synthroid 125 mcg once a day. Cozaar 25 mg once a day. Ambien 5 mg at bedtime as needed. PHYSICAL EXAMINATION: GENERAL: Patient in no distress, BP 109/71, HR about 100, RR 16, height 5 feet 4 inches, weight 224, body mass index 38.4. The patient lost about 5 pounds since previous visit, temperature 98.1. HEENT: PERRLA, EOMI. Oropharynx low position of soft palate. NECK: Supple, no JVD. Thyroid is not palpable. LUNGS: Clear to percussion and to auscultation. Good air exchange. No wheezing or rhonchi. HEART: S1, S2 regular. No murmurs, gallops, or rubs. ABDOMEN: Obese. Soft and nontender. Bowel sounds are present. No organomegaly appreciated. EXTREMITIES: No clubbing or cyanosis. [employer]: Awake, alert, and oriented X3. Cranial nerves 2 to 7 intact. There is no fasciculation or atrophy. noted. No focal deficits observed. IMPRESSION: 1. Severe obstructive sleep apnea-hypopnea syndrome. The patient demonstrated good compliance with treatment benefitting from treatment. 2. Obesity. 3. Hypothyroidism. 4. History of osteoarthritis. 5. Status post hysterectomy. 6. Status post lap band surgery. 7. History of irritable bowel syndrome. PLAN: 1. Patient will continue to use PAP equipment every night for the whole night. 2. Sleep hygiene with regular time in bed for at least 7-1/2 to 8 hours. 3. Precautions related to driving. No driving if feeling sleepiness. 4. I will maintain all necessary prescription for PAP supplies including mask, tube, filters. 5. Watching weight. 6. Follow-up visit in 6 months or earlier if patient has any problems. Thank you very much for allowing me to participate in management of your patient. Sincerely, Cb Christie, MD, PhD, FAASM Diplomat of [employer] [employer] Sleep Medicine Board of [place] [employer] Legal Project Manager of [facility] [place] YESY / JENNIFER: [id number] /
== END ==
LOC: SLEEP 16:06
PROVIDERS: ATTEND Internal Medicine
DX: G47.33 Obstructive sleep apnea (adult) (pediatric) (principal); E66.9 Obesity, unspecified; E03.9 Hypothyroidism, unspecified; M19.90 Unspecified osteoarthritis, unspecified site; Z68.38 Body mass index [BMI] 38.0-38.9, adult; Z90.710 Acquired absence of both cervix and uterus; Z98.84 Bariatric surgery status; Z87.19 Personal history of other diseases of the digestive system; Z87.891 Personal history of nicotine dependence; Z88.2 Allergy status to sulfonamides; Z88.8 Allergy status to other drugs, medicaments and biological substances; Z88.6 Allergy status to analgesic agent

== ENCOUNTER → 2021-03-18 | Day surgery (SDC) | payer BC, MEDICARE ==
[2021-03-13 09:45] VITALS: BMI 37.4
[~2021-03-18] MED LIST changes: -LACTATED RINGERS 1,000 ML IV SCH; +SODIUM CHLORIDE 0.9% 500 ML 500 ML IV ONE; -ceFAZolin 1 GM in SODIUM CHLORIDE 0.9% 250 ML IRRIGATION PRN
[2021-03-18 09:05] VITALS: BP 135/79; PULSE 65; RESP 16; TEMP 98.5
--- NOTE | 2021-03-18 10:02 | P.EPPROC ---
- EP Procedure Note Electrophysiology Procedure Note: Diagnosis RV oversensing Patient had a permanent pacemaker implanted in December 2020 Cinefluoroscopy of the leads Right atrial and RV leads in excellent position RV lead in mid to high RV septum The device pocket underwent fluoroscopy The pain plugs are well past the patient reports for atrial and ventricular ports No fractures or breaks noted Device was interrogated RV pacing impedance 513 ohms RV threshold 0.5 V at 0.4 ms R waves 7.4 mV Atrial pacing impedance 627 ohms Atrial pacing threshold 0.5 V at 0.4 ms P waves 5.3 mV RV sensing polarity was programmed in the unipolar polarity Pacemaker re-programming RV polarity change to bipolar Chronic parameters programmed for atrial and ventricular leads Both atrial lead and RV lead pacing programmed at 2 V at 0.4 ms
== END | disposition home or self-care (01) ==
LOC: CATHEP 08:35
PROVIDERS: ATTEND Internal Medicine Clinical Cardiac Electrophysiology
DX: T82.118A Breakdown (mechanical) of other cardiac electronic device, initial encounter (principal); I10 Essential (primary) hypertension; R00.0 Tachycardia, unspecified; G47.33 Obstructive sleep apnea (adult) (pediatric); I49.5 Sick sinus syndrome; F17.210 Nicotine dependence, cigarettes, uncomplicated; Z79.890 Hormone replacement therapy
CPT/HCPCS: 93280

== ENCOUNTER 2022-06-14 13:19 | Emergency (ER) | payer MEDICARE, OTHER ==
[2022-06-14 13:40] VITALS: RESP 18; TEMP 98.2
[2022-06-14] MEDS ORDERED: SODIUM CHLORIDE 0.9% 1,000 ML IV STA (14:43)
[2022-06-14] MEDS ORDERED: KETOROLAC 15 MG/ML 1 ML VIAL IVP STA (15:36)
[2022-06-14] MEDS ORDERED: MORPHINE SULFATE 2 MG/ML SYRINGE IVP STA (15:36)
[2022-06-14] MEDS ORDERED: METOCLOPRAMIDE 5 MG/ML 2 ML VIAL IVP STA (15:38)
--- NOTE | 2022-06-14 15:40 | ED ---
Abdominal Pain HPI - General Source: patient, family, RN notes reviewed Mode of arrival: ambulatory Limitations: no limitations - History of Present Illness MD Complaint: abdominal pain Location: RUQ, epigastric <Anali Harrison - Last Filed: 06/14/22 17:29> <Kristopher Cr - Last Filed: 06/14/22 21:38> - General Chief Complaint: Abdominal Pain Stated Complaint: poss food in esophagus Time Seen by Provider: 06/14/22 14:33 - History of Present Illness Initial Comments: This is a 67-year-old female who presents to the emergency department for abdom inal pain. States that early this morning, around 10 AM, she ate a piece of turkey. She feels like this got stuck, she is now having pain in the upper abdomen. States that anytime she tries to eat, she spits it back up. States that her saliva is also unable to go down. She is worried that the food is stuck in her esophagus. Denies any fevers, chills, sore throat, cough, dyspnea, chest pain, palpitations, diarrhea, back pain, or headaches. (Anali Harrison) - Related Data Home Medications Medication Instructions Recorded Confirmed Levothyroxine Sodium [Synthroid] 125 mcg PO HS 05/04/18 03/18/21 Losartan [Cozaar] 12.5 mg PO HS 12/31/18 03/18/21 Piroxicam [Feldene] 20 mg PO HS 12/31/18 03/18/21 Metoprolol Succinate (ER) [Toprol 25 mg PO QAM 03/13/21 03/18/21 Xl] Zolpidem [Ambien] 5 mg PO HS PRN 03/13/21 03/13/21 Allergies Allergy/AdvReac Type Severity Reaction Status Date / Time Sulfa (Sulfonamide Allergy Rash/Hives Verified 06/14/22 13:40 Antibiotics) meperidine [From Demerol] AdvReac BP drops Verified 06/14/22 13:40 methylprednisolone AdvReac Rash/Hives Verified 06/14/22 13:40 [From Depo-Medrol] Review of Systems ROS Other: All systems not noted in ROS Statement are negative. <Anali Harrison - Last Filed: 06/14/22 17:29> ROS Other: All systems not noted in ROS Statement are negative. <Kristopher Cr - Last Filed: 06/14/22 21:38> ROS Statement: Those systems with pertinent positive or pertinent negative responses have been documented in the HPI. Past Medical History Past Medical History: Osteoarthritis (OA), Sleep Apnea/CPAP/BIPAP, Thyroid Disorder Additional Past Medical History / Comment(s): See Dr See H&P, IBS, SMALL BOWEL OBSTRUCTION CPAP History of Any Multi-Drug Resistant Organisms: None Reported Past Surgical History: Cholecystectomy, Hysterectomy, Pacemaker Additional Past Surgical History / Comment(s): Colonoscopy, Cataracts; Lap band and removal Past Anesthesia/Blood Transfusion Reactions: Previous Problems w/ Anesthesia, M otion Sickness Additional Past Anesthesia/Blood Transfusion Reaction / Comment(s): difficulty waking up after anesthesia Past Psychological History: No Psychological Hx Reported Smoking Status: Former smoker Past Alcohol Use History: None Reported Past Drug Use History: None Reported - Past Family History Father Family Medical History: Pulmonary Embolus Mother Family Medical History: Cancer Additional Family Medical History / Comment(s): Breast CA Daughter(s) Family Medical History: Cancer Additional Family Medical History / Comment(s): tongue ca <Anali Harrison - Last Filed: 06/14/22 17:29> General Exam Limitations: no limitations General appearance: alert, in no apparent distress Head exam: Present: atraumatic, normocephalic, normal inspection Respiratory exam: Present: normal lung sounds bilaterally. Absent: respiratory distress, wheezes, rales, rhonchi, stridor Cardiovascular Exam: Present: regular rate, normal rhythm, normal heart sounds. Absent: systolic murmur, diastolic murmur, rubs, gallop, clicks GI/Abdominal exam: Present: soft, tenderness (RUQ), hypoactive bowel sounds. Absent: distended Neurological exam: Present: alert, oriented X3, CN II-XII intact Psychiatric exam: Present: normal affect, normal mood Skin exam: Present: warm, dry, intact, normal color. Absent: rash <Anali Harrison - Last Filed: 06/14/22 17:29> Course Vital Signs 06/14/22 06/14/22 13:38 16:00 Temperature 98.2 F Pulse Rate 101 H 105 H Respiratory 18 18 Rate Blood Pressure 130/90 118/90 O2 Sat by Pulse 98 98 Oximetry Medical Decision Making - Lab Data Result diagrams: 06/14/22 15:47 06/14/22 15:47 - Radiology Data Radiology results: report reviewed, image reviewed <Anali Harrison - Last Filed: 06/14/22 17:29> - Lab Data Result diagrams: 06/14/22 15:47 06/14/22 15:47 <Kristopher Cr - Last Filed: 06/14/22 21:38> - Medical Decision Making This is a 67-year-old female who presents to the emergency department for abdominal pain. Lab work obtained and found to be nonactionable. Urinalysis is negative for any signs of infection. She was given IV fluids, Toradol, morphine, Protonix, and Reglan, which she states improved her pain, however she is still unable to swallow her saliva. The patient was going to go to CAT scan, however she started to feel very clammy and overall ill. She felt like her blood sugar was low even though it was not on lab work. She was subsequently taken back to her room and requested sugar to improve her symptoms. Case signed out to ED attending at shift completion. (Anali Harrison) I did take over the care of the patient. On my evaluation, the patient had a negative CT and was given a by mouth challenge with soda. The patient was unabl e to tolerate this and did have continued fullness in the epigastric region and could not tolerate any further secretions. Due to these symptoms and findings, the patient did require further evaluation and management with a likely EGD by gastroenterology. Currently there is no gastric neurology on-call and we cannot accept the patient here. The patient will require transfer seen and evaluated b y gastroenterology. The patient was accepted for transfer to [facility] by Dr. Rangel as in emergency department to emergency department transfer. The patient was told of this plan and was agreeable. The patient was transferred in stable condition. (Kristopher Cr) - Lab Data Lab Results 06/14/22 06/14/22 06/14/22 Range/Units 15:47 15:47 15:47 WBC 9.8 (3.8-10.6) k/uL RBC 5.31 (3.80-5.40) m/uL Hgb 15.2 (11.4-16.0) gm/dL Hct 45.3 (34.0-46.0) % MCV 85.3 (80.0-100.0) fL MCH 28.5 (25.0-35.0) pg MCHC 33.4 (31.0-37.0) g/dL RDW 12.6 (11.5-15.5) % Plt Count 283 (150-450) k/uL MPV 7.7 Neutrophils % Not Reportable Neutrophils % (Manual) 80 % Lymphocytes % Not Reportable Lymphocytes % (Manual) 13 % Monocytes % Not Reportable Monocytes % (Manual) 4 % Eosinophils % Not Reportable Eosinophils % (Manual) 1 % Basophils % Not Reportable Basophils % (Manual) 2 % Neutrophils # Not Reportable Neutrophils # (Manual) 7.84 H (1.3-7.7) k/uL Lymphocytes # Not Reportable Lymphocytes # (Manual) 1.27 (1.0-4.8) k/uL Monocytes # Not Reportable Monocytes # (Manual) 0.39 (0-1.0) k/uL Eosinophils # Not Reportable Eosinophils # (Manual) 0.10 (0-0.7) k/uL Basophils # Not Reportable Basophils # (Manual) 0.20 (0-0.2) k/uL Nucleated RBCs 0 (0-0) /100 WBC Manual Slide Review Performed Poikilocytosis (manual Present Sodium 140 (137-145) mmol/L Potassium 5.3 H (3.5-5.1) mmol/L Chloride 104 (98-107) mmol/L Carbon Dioxide 27 (22-30) mmol/L Anion Gap 9 mmol/L BUN 18 H (7-17) mg/dL Creatinine 0.65 (0.52-1.04) mg/dL Est GFR (CKD-EPI)AfAm >90 (>60 ml/min/1.73 sqM) Est GFR (CKD-EPI)NonAf >90 (>60 ml/min/1.73 sqM) Glucose 109 H (74-99) mg/dL Plasma Lactic Acid Lance 0.9 (0.7-2.0) mmol/L Calcium 9.2 (8.4-10.2) mg/dL Total Bilirubin 0.7 (0.2-1.3) mg/dL AST 30 (14-36) U/L ALT 26 (4-34) U/L Alkaline Phosphatase 114 (38-126) U/L Troponin I (0.000-0.034) ng/mL Total Protein 7.9 (6.3-8.2) g/dL Albumin 4.9 (3.5-5.0) g/dL Amylase 54 (30-110) U/L Lipase 51 (23-300) U/L Urine Color Urine Appearance (Clear) Urine pH (5.0-8.0) Ur Specific [place] (1.001-1.035) Urine Protein (Negative) Urine Glucose (UA) (Negative) Urine Ketones (Negative) Urine Blood (Negative) Urine Nitrite (Negative) Urine Bilirubin (Negative) Urine Urobilinogen (<2.0) mg/dL Ur Leukocyte Esterase (Negative) 06/14/22 06/14/22 Range/Units 15:47 16:35 WBC (3.8-10.6) k/uL RBC (3.80-5.40) m/uL Hgb (11.4-16.0) gm/dL Hct (34.0-46.0) % MCV (80.0-100.0) fL MCH (25.0-35.0) pg MCHC (31.0-37.0) g/dL RDW (11.5-15.5) % Plt Count (150-450) k/uL MPV Neutrophils % Neutrophils % (Manual) % Lymphocytes % Lymphocytes % (Manual) % Monocytes % Monocytes % (Manual) % Eosinophils % Eosinophils % (Manual) % Basophils % Basophils % (Manual) % Neutrophils # Neutrophils # (Manual) (1.3-7.7) k/uL Lymphocytes # Lymphocytes # (Manual) (1.0-4.8) k/uL Monocytes # Monocytes # (Manual) (0-1.0) k/uL Eosinophils # Eosinophils # (Manual) (0-0.7) k/uL Basophils # Basophils # (Manual) (0-0.2) k/uL Nucleated RBCs (0-0) /100 WBC Manual Slide Review Poikilocytosis (manual Sodium (137-145) mmol/L Potassium (3.5-5.1) mmol/L Chloride (98-107) mmol/L Carbon Dioxide (22-30) mmol/L Anion Gap mmol/L BUN (7-17) mg/dL Creatinine (0.52-1.04) mg/dL Est GFR (CKD-EPI)AfAm (>60 ml/min/1.73 sqM) Est GFR (CKD-EPI)NonAf (>60 ml/min/1.73 sqM) Glucose (74-99) mg/dL Plasma Lactic Acid Lance (0.7-2.0) mmol/L Calcium (8.4-10.2) mg/dL Total Bilirubin (0.2-1.3) mg/dL AST (14-36) U/L ALT (4-34) U/L Alkaline Phosphatase (38-126) U/L Troponin I <0.012 (0.000-0.034) ng/mL Total Protein (6.3-8.2) g/dL Albumin (3.5-5.0) g/dL Amylase (30-110) U/L Lipase (23-300) U/L Urine Color Light Yellow Urine Appearance Clear (Clear) Urine pH 6.0 (5.0-8.0) Ur Specific [place] 1.011 (1.001-1.035) Urine Protein Negative (Negative) Urine Glucose (UA) Negative (Negative) Urine Ketones Negative (Negative) Urine Blood Negative (Negative) Urine Nitrite Negative (Negative) Urine Bilirubin Negative (Negative) Urine Urobilinogen <2.0 (<2.0) mg/dL Ur Leukocyte Esterase Negative (Negative) Disposition <Anali Harrison - Last Filed: 06/14/22 17:29> Is patient prescribed a controlled substance at d/c from ED?: No Time of Disposition: 21:25 - Out of Hospital Transfer - Req. Specs Out of Hospital Transfer - Requested Specifics: Other Emergency Center ([facility]) <Kristopher Cr - Last Filed: 06/14/22 21:38> Clinical Impression: Food bolus obstruction of intestine Disposition: OTHER INSTITUTION NOT DEFINED Condition: Stable Referrals: Jeevan Martinez MD [Primary Care Provider] - 1-2 days
[2022-06-14 15:57] LABS: HCT 45.3 % (34.0-46.0); HGB 15.2 gm/dL (11.4-16.0); MCH 28.5 pg (25.0-35.0); MCHC 33.4 g/dL (31.0-37.0); MCV 85.3 fL (80.0-100.0); Mean Platelet Volume 7.7; Platelet Count 283 k/uL (150-450); RBC 5.31 m/uL (3.80-5.40); RDW 12.6 % (11.5-15.5); WBC 9.8 k/uL (3.8-10.6)
[2022-06-14 16:01] VITALS: BP 118/90; PULSE 105
[2022-06-14 16:13] LABS: ALT 26 U/L (4-34); AST 30 U/L (14-36); African American GFR (CKD) >90 (>60 ml/min/1.73 sqM); Albumin 4.9 g/dL (3.5-5.0); Alkaline Phosphatase 114 U/L (38-126); Amylase 54 U/L (30-110); Anion Gap 9 mmol/L; Blood Urea Nitrogen 18 mg/dL (7-17); Calcium 9.2 mg/dL (8.4-10.2); Carbon Dioxide 27 mmol/L (22-30); Chloride 104 mmol/L (98-107); Glucose 109 mg/dL (74-99); Lipase 51 U/L (23-300); Non-African American GFR(CKD) >90 (>60 ml/min/1.73 sqM); Potassium 5.3 mmol/L (3.5-5.1); Sodium 140 mmol/L (137-145); Total Bilirubin 0.7 mg/dL (0.2-1.3); Total Protein 7.9 g/dL (6.3-8.2)
[2022-06-14] MEDS ORDERED: PANTOPRAZOLE 40 MG/10 ML VIAL IVP STA (16:16)
[2022-06-14 16:47] LABS: Appearance,Urine Clear (Clear); Bilirubin,Urine Negative (Negative); Blood,Urine Negative (Negative); Color,Urine Light Yellow; Glucose,Urine (UA) Negative (Negative); Ketones,Urine Negative (Negative); Leukocyte Esterase,Urine Negative (Negative); Nitrite,Urine Negative (Negative); Protein,Urine Negative (Negative); Specific Gravity,Urine 1.011 (1.001-1.035); Urobilinogen,Urine <2.0 mg/dL (<2.0)
[2022-06-14 16:52] LABS: Lymphocytes # (M) 1.27 k/uL (1.0-4.8); Monocytes # (M) 0.39 k/uL (0-1.0); Neutrophils # (M) 7.84 k/uL (1.3-7.7); Neutrophils % (M) 80 %; Nucleated Red Blood Cells 0 /100 WBC (0-0); Poikilocytosis (M) Present; Total Cells Counted 100
[2022-06-14] MEDS ORDERED: DEXTROSE 50% SYRINGE 50 ML IVP STA (16:58)
--- NOTE | 2022-06-14 20:08 | CT ---
EXAMINATION TYPE: CT abdomen pelvis w con DATE OF EXAM: 06/14/2022 COMPARISON: 12/30/2018 HISTORY: Epigastric pain, vomiting CT DLP: 1504.8 mGycm Automated exposure control for dose reduction was used. CONTRAST: Performed with IV Contrast, patient injected with 100ml mL of Isovue 300. Images obtained from the diaphragm to the floor the pelvis with IV contrast. Lung bases are clear. No pleural effusion. Heart size is normal. No pericardial effusion. There is hi atal hernia. There are clips at the diaphragm hiatus. The liver spleen pancreas appear normal. The bile duct are not dilated. There are clips from cholecys tectomy. There is no adrenal mass. Kidneys show satisfactory contrast opacification. No hydronephrosi s. There are bilateral multiple renal cortical cysts that measure up to 4 cm. No retroperitoneal sydney opathy. Bladder distends smoothly. No inguinal hernia. No free fluid in the pelvis. No pelvic mass. There is no mesenteric edema. No ascites or free air. No sign of a bowel obstruction. Delayed images show normal renal excretion. Appendix not seen. No sign of thickened appendix. Terminal ileum appears normal. The lumbar vertebrae have normal alignment. No compression fracture. Bony pelvis is intact. The hip joints are intact. Delayed images show normal renal excretion. IMPRESSION: Hiatal hernia. No acute abnormality in the abdomen and pelvis. No adverse change compared to the old exam. There there is clearing of the distended fluid-filled small bowel loops compared to old exam.
== END 2022-06-14 23:00 | disposition other institution (70) ==
LOC: EC 13:19
DX: K56.699 Other intestinal obstruction unspecified as to partial versus complete obstruction (principal); M19.90 Unspecified osteoarthritis, unspecified site; G47.30 Sleep apnea, unspecified; E07.9 Disorder of thyroid, unspecified; Z87.891 Personal history of nicotine dependence; Z90.49 Acquired absence of other specified parts of digestive tract; Z79.890 Hormone replacement therapy; Z79.1 Long term (current) use of non-steroidal anti-inflammatories (NSAID); Z88.8 Allergy status to other drugs, medicaments and biological substances; Z88.5 Allergy status to narcotic agent; Z88.2 Allergy status to sulfonamides
CPT/HCPCS: 36415; 80053; 82150; 83605; 83690; 84484; 85025; 81003; 74177; 99285; 96374; 96375 ×4; 96361 ×7; J2765; J2270; J1885; C9113; Q9967

== ENCOUNTER → 2023-12-17 | Outpatient (CLI) | payer MEDICARE, OTHER ==
[2023-12-17 10:11] LABS: INR 0.9 (<1.2); Partial Thromboplastin Time 23.8 sec (22.0-30.0); Prothrombin Time 10.4 sec (10.0-12.5)
[2023-12-17 15:47] LABS: ALT 23 U/L (8-44); AST 21 U/L (13-35); Albumin 4.3 g/dL (3.8-4.9); Albumin/Globulin Ratio 1.79 Ratio (1.60-3.17); Alkaline Phosphatase 106 U/L (41-126); Blood Urea Nitrogen 16.2 mg/dL (9.0-27.0); Calcium 9.7 mg/dL (8.7-10.3); Carbon Dioxide 24.8 mmol/L (21.6-31.8); Chloride 103 mmol/L (96-109); Globulin 2.4 g/dL (1.6-3.3); Glucose 106 mg/dL (70-110); Potassium 4.9 mmol/L (3.5-5.5); Sodium 139 mmol/L (135-145); Total Bilirubin 0.3 mg/dL (0.3-1.2); Total Protein 6.7 g/dL (6.2-8.2)
[2023-12-17 15:58] LABS: HCT 41.4 % (37.2-46.3); HGB 13.1 g/dL (12.0-15.0); MCH 27.7 pg (27.0-32.0); MCHC 31.6 g/dL (32.0-37.0); MCV 87.5 FL (80.0-97.0); Mean Platelet Volume 10.5 FL (9.5-12.2); NRBC Per 100 WBC 0 X 10*3/uL (0.00-0.01); Platelet Count 270 X 10*3/uL (140-440); RBC 4.73 X 10*6/uL (4.10-5.20); RDW 13.2 % (11.5-14.5); WBC 7.74 X 10*3/uL (4.50-10.00)
== END | disposition home or self-care (01) ==
LOC: LABPAT 08:51
PROVIDERS: ATTEND Orthopaedic Surgery
DX: Z01.812 Encounter for preprocedural laboratory examination (principal)
CPT/HCPCS: 36415; 80053; 85027; 85610; 85730; 87070; 93005

== ENCOUNTER 2023-12-29 05:32 | Day surgery (SDC) | payer MEDICARE, OTHER ==
[~2023-12-29 05:32] MED LIST changes: -SODIUM CHLORIDE 0.9% 1,000 ML IV SCH; -SODIUM CHLORIDE 0.9% 500 ML 500 ML IV ONE; +TRANEXAMIC 1,000 MG/100ML-NACL 1,000 MG in SALINE 1 100ML.BAG IVPB PRN
[2023-12-29] MEDS: IV FLUID CONTINUATION 1,000 ML IV ONE (06:39)
[2023-12-29] MEDS: LACTATED RINGERS 1,000 ML IV SCH (06:40)
[2023-12-29] MEDS: GABAPENTIN 300 MG CAP PO PRN (06:41)
[2023-12-29] MEDS: MELOXICAM 7.5 MG TAB PO PRN (06:41)
[2023-12-29] MEDS: ONDANSETRON 4 MG/2 ML VIAL IVP ONE (06:43)
[2023-12-29] MEDS: ACETAMINOPHEN TAB 500 MG TAB PO PRN ×2 (06:43→17:46)
[2023-12-29] MEDS: fentaNYL (PF) 50 MCG/ML 2 ML AMP IVP ONE (06:46)
[2023-12-29] MEDS: MIDAZOLAM 2 MG/2 ML VIAL IVP ONE (06:46)
[2023-12-29] MEDS ORDERED: MIDAZOLAM 2 MG/2 ML VIAL IV PRN (07:00)
[2023-12-29] MEDS ORDERED: TRANEXAMIC 1,000 MG/100ML-NACL PREMIX BAG ONE (07:09)
[2023-12-29] MEDS ORDERED: GLYCOPYRROLATE 0.2 MG/ML 2 ML VIAL ONE (07:09)
[2023-12-29] MEDS ORDERED: diphenhydrAMINE 50 MG/ML 1 ML VIAL ONE (07:09)
[2023-12-29] MEDS ORDERED: SODIUM CHLORIDE 0.9% (PF) 10 ML VIAL ONE (07:09)
[2023-12-29] MEDS ORDERED: PHENYLEPHRINE 10 MG/ML VIAL ONE (07:09)
[2023-12-29] MEDS ORDERED: ROPIVACAINE 5 MG/ML 30 ML VIAL ONE (07:09)
[2023-12-29] MEDS ORDERED: PROPOFOL 10 MG/ML 20 ML VIAL IV ONE (07:09)
--- NOTE | 2023-12-29 07:09 | P.ANPRN ---
Procedure Note - Anesthesia - Nerve Block Performed Right Adductor Canal Infusion Time Out Performed: Yes Date of Procedure: 12/29/23 Procedure Start Time: 06:46 Procedure Stop Time: 06:55 Location of Patient: PreOp Indication: Acute Post-Operative Pain, Requested by Surgeon Sedation Type: Sedate with meaningful contact maintained Preparation: Sterile Prep, Sterile Dressing Position: Supine Catheter: Indwelling Needle Types: Pajunk Needle Gauge: 18 Ultrasound used to visualize needle placement: Yes Ultrasound used to observe medication spread: Yes Injectate: 0.5% Ropivacaine (see comment for volume) (20 ml + 10 ml NS) Blood Aspirated: No Pain Paresthesia on Injection Noted: No Resistance on Injection: Normal Image Stored and Saved: Yes Events: Uneventful and Well Tolerated
--- NOTE | 2023-12-29 07:10 | P.ANPRN ---
Procedure Note - Anesthesia - Nerve Block Performed Right iPack Single Time Out Performed: Yes Date of Procedure: 12/29/23 Procedure Start Time: 06:56 Procedure Stop Time: 07:03 Location of Patient: PreOp Indication: Acute Post-Operative Pain, Requested by Surgeon Sedation Type: Sedate with meaningful contact maintained Preparation: Sterile Prep Position: Left Lateral Needle Types: Pajunk Needle Gauge: 21 Ultrasound used to visualize needle placement: Yes Ultrasound used to observe medication spread: Yes Injectate: 0.5% Ropivacaine (see comment for volume) (20 ml + 10 ml NS) Blood Aspirated: No Pain Paresthesia on Injection Noted: No Resistance on Injection: Normal Image Stored and Saved: Yes Events: Uneventful and Well Tolerated
[2023-12-29 07:12] LABS: Glucose,Whole Blood 119 mg/dL (70-110)
[2023-12-29] MEDS: ceFAZolin 1,000 MG in SODIUM CHLORIDE 0.9% 1,000 ML IRRIGATION ONE (07:15)
[2023-12-29] MEDS ORDERED: HYDROmorphone 0.5 MG/0.5 ML SYRINGE IVP PRN ×2 (07:17)
[2023-12-29] MEDS ORDERED: NALOXONE 0.4 MG/ML 1 ML VIAL IV PRN (07:17)
[2023-12-29] MEDS ORDERED: MAGNESIUM HYDROXIDE 2,400 MG/30 ML CUP PO PRN (07:17)
--- NOTE | 2023-12-29 08:25 | P.OP ---
Date of Procedure: 12/29/23 Preoperative Diagnosis: Severe osteoarthritis right knee Postoperative Diagnosis: Severe osteoarthritis right knee Procedure(s) Performed: Right total knee arthroplasty Implants: [employer]hew Journey II CR Oxinium cruciate retaining femoral component size 5, right [employer] Journey nonporous tibial baseplate size 4, right [employer] Journey II, XLPE Deep Dished articular insert, size 10 mm, Size 3-4, right [employer] Journey Candice II resurfacing patellar component, oval, 29 mm All components were cemented using Palacos R bone cement The articulation is Oxinium on polyethylene Anesthesia: spinal Surgeon: Reinaldo Carmona Podiatric Physician #1: Pilar Mendoza Estimated Blood Loss (ml): 50 Pathology: none sent Condition: stable Disposition: PACU Indications for Procedure: The patient's knee is end-stage, and conservative management has failed. The operation of knee replacement has been discussed at length in the office, as well as potential risks and complications. These are inclusive of, but not limited to: Infection, bleeding, scarring, discomfort, stiffness, blood vessel and nerve damage, need for further surgery, failure to relieve symptoms, persistence, recurrence, or worsening of problems, loosening, dislocation, wear, blood clot, pulmonary embolism, , gait dysfunction, stiffness, and other risks as discussed in the office. Patient elects to proceed and the consent form has been signed. Operative Findings: The operative findings are consistent with severe osteoarthritis of the right knee Description of Procedure: The patient was seen in the preoperative area, the consent was reviewed and the operative site was marked with a skin marker. The patient verified the procedure and the operative site. An adductor canal pain catheter and an iPACK block were placed by anesthesia in the preoperative area. The patient was then brought to the operating room and positioned on the operating room table in the supine position. Preoperative antibiotics and a gram of tranexamic acid were given intravenously. A spinal anesthetic was administered by the anesthesia department. Care was taken to make sure that all pressure points were adequately padded. A tourniquet was placed on the upper thigh and the lower extremity was prepped with ChloraPrep and draped in usual sterile fashion. A universal time-out was then performed which confirmed the patient's name, surgical site, ALLERGIES, and consent. The lower extremity was then exsanguinated and tourniquet was inflated to 250 mmHg. A standard anterior midline approach to the knee was performed. The skin and subcutaneous tissue were sharply dissected down to the patellar tendon. A medial parapatellar arthrotomy was then performed. The knee was then extended, the patellar was everted, and the knee was flexed. The infra-patellar fat pad was removed in order to enhance exposure. The anterior horns of both menisci were excised, and a release was performed to the posterior medial aspect of the knee. On gross visual inspection, there was complete loss of articular cartilage in the medial and patellofemoral joint spaces. There was also significant cartilage damage in the lateral compartment. There were multiple periarticular osteophytes globally about the knee which were then removed with a Ronguer. The femoral canal was then opened with the 9.5 mm intramedullary drill. The 8 mm intramedullary debra was then inserted into the femoral canal with the distal femoral cutting guide set for 5 of valgus. The distal femoral cutting block was then pinned in place. The intramedullary debra was then removed, and the distal femur was then cut. The cutting block was then removed and the cut was checked for symmetry. The resected bone was then measured to confirm the appropriate distal femoral resection. Next, the sizing guide was then placed and set for 3 external rotation based off of the epicondylar axis and [place]'s line. Pins were then placed and the drill holes, and the femur was sized with the sizing stylus. The pins were then removed, and the sizing guide was then removed. The spikes of the appropriate size femoral block was then placed into the predrilled holes, and malleted into place. Two 45 mm pins were then placed into the fixation holes on the cutting block. An jim wing was then used to ensure there would be no notching with the anterior cut. The anterior condyles were cut without notching. The anterior chord cut was then performed, followed by the posterior cut, posterior chamfer cut, and the anterior chamfer cut. The collateral ligaments were protected during the entire process. The cutting block was then removed. Any remaining bone and osteophytes were removed from the femur with a Ronguer. Attention was then directed to the tibia. The remaining ACL was removed with a Ronguer, and the tibia was then gently subluxed forward with a large bent knee retractor. Any remaining menisci were excised. The posterior lateral corner was cauterized in order to coagulate the lateral geniculate artery. The extra medullary tibial cutting guide was then placed, set for the appropriate rotation, slope, and depth of resection. The proximal tibia cutting guide was then pinned in place. Proximal tibia was then cut and sized. A curved osteotome was then used to remove any posterior osteophytes from the distal femur. The femoral trial was placed. A narrow saw blade was then used to remove the anterior intracondylar femoral bone. The CR notch trial was then placed. The tibial trial was placed with the appropriate-sized insert. The knee was able to fully extend and flex to 130 and was stable throughout all range of motion. The knee was then extended and the patella was everted. Patella was then measured, and then using an osteotomy guide, the patella was cut at the appropriate level. The patellar component was sized. The patellar drill guide was placed and the patella was drilled. The patella trial was then placed. The knee was then taken through range of motion with the patella trial and the patella tracked normally using the no thumbs technique. The patella trial was then removed. The knee was then flexed and lug holes were drilled through the femoral trial and the femoral trial was then removed. The tibial was then re- exposed, and the tibial broach guide was then pinned in place after it was set for the appropriate rotation to allow for the most coverage without overhang. The tibia was then reamed and broached. The femoral canal was plugged with autologous bone. The cut surfaces of bone were then irrigated with pulsatile lavage. The knee was also irrigated with Irrisept solution. The components were then opened, the cement was mixed. Cement was placed on the backside of the femoral, tibial, and patellar components. Cement was then applied to the tibial surface and pressurized into the surface using finger pressurization technique. The tibial component was then applied and excess cement was removed after it was impacted securely noted to be flush with the cut surface. In similar fashion, the cement was applied to the cut femoral surface, pressurized and using finger pressurization the component was impacted in place. Excess cement was removed. The polyethylene spacer was then implanted and locked into position. Patellar component was then applied in a similar technique and the patellar clamp was used to hold patella in place while the cement hardened. The knee was held in full extension while the cement hardened. Once the cement had fully hardened, the knee was reinspected. Any other cement extrusion was removed the final range of motion testing showed range of motion from 0-130 with excellent stability, both medial and laterally and appropriate alignment of the leg. Patella tracked normally. After the cemented hardened, the tourniquet was released and hemostasis was obtained. A second gram of transexamic acid was given intravenously. The knee was again irrigated. The knee was again taken through range of motion and found to be stable throughout all range of motion of 0-130, and the patella tracked normally. The fascia was then closed with 0 Vicryl followed by #2 strata fix suture. The subcutaneous tissue was closed with 3-0 Vicryl and 3-0 strata fix. Exofin glue was used for the skin and placed with the knee in flexion. After the glue had dried, and Optafoam silver impregnated dressing was applied. A lightly compressive dressing was applied using web roll and Dhaval wrap. Patient was then transferred to the stretcher and taken to recovery room in stable condition. Sponge and needle counts were correct. The library serials assistant VIRGILIO Burns was required due the complexity surgery and the need for a skilled leasing assistant. She assisted in positioning, draping, retraction, and closure of the wound.
[2023-12-29] MEDS: LACTATED RINGERS 1,000 ML IV ONE ×2 (08:30→08:45)
[2023-12-29] MEDS: HYDROmorphone 0.5 MG/0.5 ML SYRINGE IVP PRN ×2 (08:57→20:38)
[2023-12-29] MEDS: ROPIVACAINE 1,100 MG, SODIUM CHLORIDE 0.9% 500 ML 330 ML, EMPTY PAIN BALL 1 EACH MISCELLANE PRN (09:29)
--- NOTE | 2023-12-29 10:03 | XR ---
EXAMINATION TYPE: XR knee limited RT DATE OF EXAM: 12/29/2023 CLINICAL HISTORY: Postoperative evaluation Two views of the right knee are submitted. Identified are changes of total knee arthroplasty with femoral and tibial components appearing well seated. Postsurgical soft tissue changes are noted. Alignment is anatomic.
[2023-12-29] MEDS: SODIUM CHLORIDE 0.9% 1,000 ML IV SCH (12:43)
[2023-12-29] MEDS: ONDANSETRON 4 MG/2 ML VIAL IVP PRN (12:50)
[2023-12-29] MEDS: HYDROcodone/APAP 7.5-325MG 1 EACH TAB PO PRN ×2 (18:34→23:24)
--- NOTE | 2023-12-29 19:10 | P.CONS ---
History of Present Illness - Reason for Consult Consult date: 12/29/23 Medical management Requesting physician: Reinaldo Carmona - Chief Complaint Right knee surgery - History of Present Illness This is a pleasant 68-year-old patient who follows with Dr. Martinez. Chronic stable medical condition include hyperlipidemia, obstructive sleep apnea uses CPAP, has a permanent pacemaker, GERD, IBS. Postprocedure some pain in the right knee. No nausea vomiting. No cardiac symptoms. at the bedside. Review of systems: GEN.: Tired EYES: None HEENT: None NECK: None RESPIRATORY: None CARDIOVASCULAR: None GASTROINTESTINAL: None GENITOURINARY: None MUSCULOSKELETAL: Joint pains LYMPHATICS: None HEMATOLOGICAL: None PSYCHIATRY: None NEUROLOGICAL: None Social history: No alcohol. Lives with her . No smoking Physical examination: VITAL SIGNS: 95.9, 77, 16, 122 x 80, 93% on 2 L GENERAL: BMI 39.5, reclining bed awake comfortable. EYES: Pupils equal. Conjunctiva josep l. HEENT: External appearance of nose and ears normal, oral cavity grossly normal. NECK: JVD not raised; masses not palpable. HEART: First and second heart sounds are normal; no edema. LUNGS: Respiratory rate normal; clear to auscultation. ABDOMEN: Soft, nontender, liver spleen not palpable, no masses palpable. PSYCH: Alert and oriented x3; mood and affect josep l. MUSCULOSKELETAL:No Clubbing/cyanosis;muscles-grossly intact. Dressing over right knee NEUROLOGICAL: Cranial nerves grossly intact; no facial asymmetry, power and sensation grossly intact. LYMPHATICS: No lymph nodes palpable in the axilla and neck INVESTIGATIONS, reviewed in the clinical context: December 16 white count 7.7 hemoglobin 13.1 platelets 270 potassium 4.9 creatinine 0.9 Assessment plan: -Right total knee arthroplasty Pain controlled. Eliquis. IV cefazolin for infection prophylaxis -Hyperlipidemia Rosuvastatin 10 mg -GERD Omeprazole 20 mg nightly -Primary osteoarthritis Pain medication as needed -Hypothyroid Synthroid 125 mcg -Irritable bowel syndrome -History of atrial fibrillation currently with a pacemaker Toprol-XL 25 mg nightly. Eliquis. -Full code Care was discussed with the patient. Questions answered. Thank Dr. Carmona Past Medical History Past Medical History: Hyperlipidemia, Hypertension, Osteoarthritis (OA), Sleep Apnea/CPAP/BIPAP, Thyroid Disorder, Vascular Disorder Additional Past Medical History / Comment(s): See Dr See H&P, IBS, SMALL BOWEL OBSTRUCTION, CPAP, slow heart rate, phlebitis History of Any Multi-Drug Resistant Organisms: None Reported Past Surgical History: Bariatric Surgery, Cholecystectomy, Hysterectomy, Pacemaker Additional Past Surgical History / Comment(s): Colonoscopy, Cataracts; Lap band and removal,vein stripping rt leg, lft hand carpal tunnel Past Anesthesia/Blood Transfusion Reactions: Previous Problems w/ Anesthesia, Motion Sickness Additional Past Anesthesia/Blood Transfusion Reaction / Comm: difficulty waking up after anesthesia Type of Cardiac Device: Permanent Pacemaker Device Placement Date:: 2020 Smoking Status: Former smoker - Past Family History Father Family Medical History: Pulmonary Embolus Mother Family Medical History: Cancer Additional Family Medical History / Comment(s): Breast CA Daughter(s) Family Medical History: Cancer Additional Family Medical History / Comment(s): tongue ca Medications and Allergies Home Medications Medication Instructions Recorded Confirmed Type Levothyroxine Sodium [Synthroid] 125 mcg PO HS 05/04/18 12/29/23 History Metoprolol Succinate (ER) [Toprol 25 mg PO HS 03/13/21 12/29/23 History Xl] Zolpidem [Ambien] 5 mg PO HS PRN 03/13/21 12/29/23 History Acetaminophen Tab [Tylenol Tab] 1,000 mg PO HS 12/25/23 12/29/23 History Meloxicam [Mobic] 15 mg PO HS 12/25/23 12/29/23 History Omeprazole 20 mg PO HS 12/25/23 12/29/23 History Rosuvastatin Calcium 10 mg PO HS 12/25/23 12/29/23 History Apixaban [Eliquis] 2.5 mg PO BID 30 Days #60 tab 12/29/23 Rx HYDROcodone/APAP 7.5-325MG [[place]rian 1 - 2 tab PO Q6H PRN #32 tab 12/29/23 Rx 7.5-325] Sennosides [Senokot] 2 tab PO DAILY PRN #60 tablet 12/29/23 Rx Allergies Allergy/AdvReac Type Severity Reaction Status Date / Time Sulfa (Sulfonamide Allergy Rash/Hives Verified 12/29/23 06:12 Antibiotics) adhesive tape AdvReac Unknown Verified 12/29/23 06:12 meperidine [From Demerol] AdvReac BP drops Verified 12/29/23 06:12 methylprednisolone AdvReac Rash/Hives Verified 12/29/23 06:12 [From Depo-Medrol] Physical Exam Vitals: Vital Signs Temp Pulse Resp BP Pulse Ox 12/29/23 12:31 95.9 F L 77 16 122/80 93 L 12/29/23 11:30 67 16 120/56 98 12/29/23 11:15 76 16 123/64 98 12/29/23 11:00 77 16 125/65 98 12/29/23 10:30 59 L 16 128/64 98 12/29/23 10:15 80 16 138/75 98 12/29/23 10:00 83 16 125/67 98 12/29/23 09:45 75 16 120/63 98 12/29/23 09:30 78 16 121/66 98 12/29/23 09:15 81 16 125/67 98 12/29/23 09:00 80 16 123/68 98 12/29/23 08:53 97.4 F L 78 16 124/71 98 12/29/23 07:02 66 16 108/62 93 L 12/29/23 06:08 96.4 F L 62 16 113/55 96 Intake and Output 12/29/23 12/29/23 12/29/23 06:59 14:59 22:59 Intake Total 100 1451 Output Total 50 Balance 100 1401 Intake: IV 100 1451 Output: Estimated Blood Loss 50 Other: # Voids 3 Weight 104.33 kg 104.33 kg Results Labs: Abnormal Lab Results - Last 24 Hours (Table) 12/29/23 Range/Units 07:02 POC Glucose (mg/dL) 119 H (70-110) mg/dL
[2023-12-29 19:54] VITALS: RESP 17
[2023-12-29] MEDS: SENNOSIDES-DOCUSATE SODIUM 1 EACH TAB PO SCH (20:44)
--- NOTE | 2023-12-30 06:56 | P.PN ---
Progress Note - Text Progress Note Date: 12/30/23 Postoperative day # 1 status post total knee arthroplasty, and adductor canal catheter placed for postoperative analgesia, currently at ropivacaine 0.2% 8 mL per hour and continuous infusion, visual analogue scale is 3/10, patient using oral pain medication for breakthrough pain. Assessment and plan= Acute postoperative pain, adductor canal catheter for pain control, pain is well controlled we'll continue the same management.
[2023-12-30 07:52] VITALS: BP 102/66; PULSE 60; TEMP 98
[2023-12-30 08:45] LABS: Basophils # (A) 0.04 X 10*3/uL (0.00-0.10); Basophils % (A) 0.3 %; Eosinophils # (A) 0.02 X 10*3/uL (0.04-0.35); Eosinophils % (A) 0.1 %; HCT 40.6 % (37.2-46.3); Lymphocytes # (A) 1.31 X 10*3/uL (0.90-5.00); Lymphocytes % (A) 8.8 %; MCH 28.1 pg (27.0-32.0); MCV 87.9 FL (80.0-97.0); Mean Platelet Volume 10.2 FL (9.5-12.2); Monocytes # (A) 1.07 X 10*3/uL (0.20-1.00); Monocytes % (A) 7.2 %; NRBC Per 100 WBC 0 X 10*3/uL (0.00-0.01); Neutrophils # (A) 12.38 X 10*3/uL (1.80-7.70); Neutrophils % (A) 83.1 %; Platelet Count 259 X 10*3/uL (140-440); RBC 4.62 X 10*6/uL (4.10-5.20); RDW 12.9 % (11.5-14.5); WBC 14.89 X 10*3/uL (4.50-10.00)
[2023-12-30] MEDS: APIXABAN 2.5 MG TABLET PO SCH (10:30)
--- NOTE | 2023-12-30 10:30 | P.DS ---
Providers Expected date of discharge: 12/30/23 Attending physician: Reinaldo Carmona Consults: 12/29/23 07:17 Consult Physician Routine Consulting Provider: Shayan Wang Consult Reason/Comments: medical management Do you want consulting provider notified?: Yes Primary care physician: Jeevan Martinez - Discharge Diagnosis(es) (1) S/P total knee arthroplasty Current Visit: Yes Status: Acute (2) Osteoarthritis of right knee Current Visit: Yes Status: Acute Hospital Course: This is a 68-year-old female with known history of degenerative arthritis of the right knee. The patient presented for evaluation as an outpatient. After discussion and consideration patient elects to proceed with total knee arthroplasty. The patient is seen preoperatively by Dr. Carmona and medically cleared for surgery by their primary care physician. Patient is admitted to [facility] on 12/29/2023 for total knee arthroplasty. The procedure is performed without complication or sequelae. The patient is doing well postoperatively. Labs and vital signs are stable on day of discharge. On day of discharge patient's knee incision is healing well. There is minimal erythema. There is no drainage noted at this time. There is minimal soft tissue swelling to the knee. Patient has full foot and ankle motion without difficulty or pain. Calf is soft and nontender to palpation. Neurovascular status to the right lower extremity is intact. Patient is discharged home in good condition. Please see med rec for accurate list of home medications. Plan - Discharge Summary Discharge Rx Participant: Yes New Discharge Prescriptions: New HYDROcodone/APAP 7.5-325MG [[place] 7.5-325] 1 - 2 tab PO Q6H PRN #32 tab PRN Reason: Pain Sennosides [Senokot] 2 tab PO DAILY PRN #60 tablet PRN Reason: Constipation Aspirin 325 mg PO BID #60 tab No Action Levothyroxine Sodium [Synthroid] 125 mcg PO HS Zolpidem [Ambien] 5 mg PO HS PRN PRN Reason: Insomnia Metoprolol Succinate (ER) [Toprol Xl] 25 mg PO HS Omeprazole 20 mg PO HS Acetaminophen Tab [Tylenol Tab] 1,000 mg PO HS Rosuvastatin Calcium 10 mg PO HS Meloxicam [Mobic] 15 mg PO HS Discharge Medication List Levothyroxine Sodium [Synthroid] 125 mcg PO HS 05/04/18 [History] Metoprolol Succinate (ER) [Toprol Xl] 25 mg PO HS 03/13/21 [History] Zolpidem [Ambien] 5 mg PO HS PRN 03/13/21 [History] Acetaminophen Tab [Tylenol Tab] 1,000 mg PO HS 12/25/23 [History] Meloxicam [Mobic] 15 mg PO HS 12/25/23 [History] Omeprazole 20 mg PO HS 12/25/23 [History] Rosuvastatin Calcium 10 mg PO HS 12/25/23 [History] HYDROcodone/APAP 7.5-325MG [[place] 7.5-325] 1 - 2 tab PO Q6H PRN #32 tab 12/29/23 [Rx] Sennosides [Senokot] 2 tab PO DAILY PRN #60 tablet 12/29/23 [Rx] Aspirin 325 mg PO BID #60 tab 12/30/23 [Rx] Follow up Appointment(s)/Referral(s): [facility] [NON-STAFF] - As Needed (Continuous Passive Motion knee machine) [facility] [NON-STA[facility]] - As Needed Reinaldo Carmona DO [Doctor of Osteopathic Medicine] - 2 Weeks Activity/Diet/Wound Care/Special Instructions: Weightbearing as tolerated with a walker. CPM 5-6h daily as tolerated. Leave dressing intact. Dressing may be removed by home care nurse or by patient in 7 days. Then change dressing twice daily until follow up. May shower with initial dressing intact and after removal. If dressing become saturated, please remove. Recommend use of compression stockings daily until follow up to help prevent swelling and blood clots. May remove at night before sleeping. Please take Aspirin 325mg twice daily for 30 days to prevent blood clots. Please follow up with [facility] and call with any questions or concerns, . Discharge Disposition: HOME WITH HOME HEALTH SERVICES
[2023-12-30] MEDS: ASPIRIN 325 MG TAB PO SCH (11:08)
--- NOTE | 2023-12-30 16:22 | P.PN ---
Progress Note - Text Progress Note Date: 12/30/23 - Chief Complaint Right knee surgery - History of Present Illness This is a pleasant 68-year-old patient who follows with Dr. Martinez. Chronic stable medical condition include hyperlipidemia, obstructive sleep apnea uses CPAP, has a permanent pacemaker, GERD, IBS. Postprocedure some pain in the right knee. No nausea vomiting. No cardiac symptoms. at the bedside. December 29: Did walk in the hallway. Slightly dizzy. Educated to do things rather slowly. No respiratory or urinary symptoms. White count likely reactive from surgery. Discussed with patient and Meds reviewed Social history: No alcohol. Lives with her . No smoking Physical examination: VITAL SIGNS: 98, 60, 17, 102/66, 91% room air GENERAL: BMI 39.5, reclining bed awake comfortable. EYES: Pupils equal. Conjunctiva josep l. HEENT: External appearance of nose and ears normal, oral cavity grossly normal. NECK: JVD not raised; masses not palpable. HEART: First and second heart sounds are normal; no edema. LUNGS: Respiratory rate normal; clear to auscultation. ABDOMEN: Soft, nontender, liver spleen not palpable, no masses palpable. PSYCH: Alert and oriented x3; mood and affect josep l. MUSCULOSKELETAL:No Clubbing/cyanosis;muscles-grossly intact. Dressing over right knee INVESTIGATIONS, reviewed in the clinical context: December 29: White count 14.8 hemoglobin 13 platelets 259 December 16 white count 7.7 hemoglobin 13.1 platelets 270 potassium 4.9 creatinine 0.9 Assessment plan: -Right total knee arthroplasty Pain controlled. Eliquis. IV cefazolin for infection prophylaxis -Hyperlipidemia Rosuvastatin 10 mg -GERD Omeprazole 20 mg nightly -Primary osteoarthritis Pain medication as needed -Hypothyroid Synthroid 125 mcg -Irritable bowel syndrome -History of atrial fibrillation currently with a pacemaker Toprol-XL 25 mg nightly. Eliquis. -Full code Patient follow-up with PCP. Discussed Thank Dr. Carmona Past Medical History Past Medical History: Hyperlipidemia, Hypertension, Osteoarthritis (OA), Sleep Apnea/CPAP/BIPAP, Thyroid Disorder, Vascular Disorder Additional Past Medical History / Comment(s): See Dr See H&P, IBS, SMALL BOWEL OBSTRUCTION, CPAP, slow heart rate, phlebitis History of Any Multi-Drug Resistant Organisms: None Reported Past Surgical History: Bariatric Surgery, Cholecystectomy, Hysterectomy, Pacemaker Additional Past Surgical History / Comment(s): Colonoscopy, Cataracts; Lap band and removal,vein stripping rt leg, lft hand carpal tunnel Past Anesthesia/Blood Transfusion Reactions: Previous Problems w/ Anesthesia, Motion Sickness Additional Past Anesthesia/Blood Transfusion Reaction / Comm: difficulty waking up after anesthesia Type of Cardiac Device: Permanent Pacemaker Device Placement Date:: 2020 Smoking Status: Former smoker
[2023-12-30] MEDS ORDERED: ASPIRIN 325 MG TAB PO SCH (21:00)
== END 2023-12-30 13:42 | disposition home health service (06) ==
LOC: OR 05:32 → 4SSUR 08:47 → OR 12-30 13:42
PROVIDERS: ATTEND Orthopaedic Surgery
DX: M17.11 Unilateral primary osteoarthritis, right knee (principal); E03.9 Hypothyroidism, unspecified; E78.5 Hyperlipidemia, unspecified; G47.33 Obstructive sleep apnea (adult) (pediatric); G89.18 Other acute postprocedural pain; I10 Essential (primary) hypertension; I48.91 Unspecified atrial fibrillation; K21.9 Gastro-esophageal reflux disease without esophagitis; K58.9 Irritable bowel syndrome, unspecified; Z79.01 Long term (current) use of anticoagulants; Z79.890 Hormone replacement therapy; Z79.899 Other long term (current) drug therapy; Z87.891 Personal history of nicotine dependence; Z88.1 Allergy status to other antibiotic agents; Z88.2 Allergy status to sulfonamides; Z88.5 Allergy status to narcotic agent; Z90.49 Acquired absence of other specified parts of digestive tract; Z90.710 Acquired absence of both cervix and uterus; Z95.0 Presence of cardiac pacemaker
CPT/HCPCS: 97161; 97166; 64999; 64448; 85025; 73560; 27447; C1713; C1776; C1751; J2250; J0690 ×2; J2405; J3010; J2795; J1170